=== PATIENT | male | born 1930 | race Caucasian/White ===

== ENCOUNTER 2016-08-18 11:14 | Inpatient (IN) | payer MEDICARE ==
[~2016-08-18] VITALS: Ht 180.3 cm; Wt 83.5 kg
--- NOTE | ~2016-08-18 | PR ---
[place], [place] PROGRESS NOTE NAME: ANGÉLICA SNOW SR [facility] #: [id number] UNIT #: [id number] ROOM: 528 DOCTOR: ALEXANDER NAVA MD BIRTHDATE: [birth year] DOS: SUBJECTIVE: The patient has been admitted to hospital with dementia, noncompliant with medication, failure to thrive, and the patient is waiting to be discharged to [facility]. OBJECTIVE: VITAL SIGNS: He is stable. Blood pressure is 146/56, pulse is 57, respirations 18, temperature 97.4. GENERAL: He is not in any distress. He is sitting comfortably. No nausea, no vomiting. CHEST: Clear. HEART: Irregular. ABDOMEN: Soft. LABORATORY DATA: His hemoglobin 7. ALEXANDER NAVA MD CM:PNTRANS [id number] ALEXANDER NAVA MD 08/22/16 0701 interface
[~2016-08-18 11:14] MED LIST: 'TENORMIN50 MG PO; ALAVERT10 M1 PO; ASPI-COR81 M1 PO; ATENOLOL50 M1 PO; CIPRO250 MG PO; CLARITIN10 MG PO; FLOMAX0.4 MG PO; LACTULOSE10 GM/15 M PO; LANTUS100 U/ML SC; LASIX40 MG PO; LEVAQUIN750 M1 PO; MACROBID100 M1 PO; MEDROL DOSEPAK4 MG PO; METAMUCIL PACK3.4 GM PO; METFORMIN1000 MG PO; MIRALAX POWDER17 G1 PO; PREDNISONE10 MG PO; PREDNISONE20 MG PO; PROTONIX40 MG PO; REQUIP0.5 MG PO; REQUIP2 M2 PO; ROBITUSSIN DM 101 OZ PO; SENNA DOCUSATE PO; TAMSULOSIN HCL0.4 MG JT; TAMSULOSIN HCL0.4 MG PO; VIBRAMYCIN100 MG PO; VITAMIN D32000 I1 PO; VITAMIN D32000 IU PO; VITAMIN D32000 UNIT PO; ZESTRIL,PRINIVI10 MG PO; ZOCOR40 MG PO
[2016-08-18 11:19] VITALS: BP 165/61
[2016-08-18] MEDS ORDERED: LASIX40 MG PO (11:23)
[2016-08-18] MEDS ORDERED: LISINOPRIL10 M1 PO (11:24)
[2016-08-18] MEDS ORDERED: ARICEPT10 M1 PO (11:24)
[2016-08-18 11:47] LABS: BASO % 0.3 % (0.0-1.0); HEMATOCRIT 39.3 % (42.0-52.0); HEMOGLOBIN 12.5 g/dl (14.0-18.0); LYMPH % 25.8 % (27.0-41.0); MEAN CELL VOLUME 96.3 fl (80.0-94.0); MEAN CORPUSCULAR HGB 30.6 pg (27.0-31.0); MEAN CORPUSCULAR HGB CONC 31.8 g/dl (33.0-37.0); MEAN PLATELET VOLUME 10.2 fl (9.6-12.3); MONO # 0.9 10*3/uL (0.1-1.0); MONO % 11.1 % (3.0-9.0); NEUT # 4.8 10*3/uL (2.3-7.9); NEUT % 62.5 % (47.0-73.0); PLATELET COUNT AUTOMATED 206 10*3/uL (130-400); RED BLOOD COUNT 4.08 10*6/uL (4.50-5.90); RED CELL DISTRI WIDTH 12.7 % (0-14.5); WHITE BLOOD COUNT 7.7 10*3/uL (4.8-10.8)
[2016-08-18 12:04] LABS: ALKALINE PHOSPHATASE 82 U/L (45-117); BILIRUBIN, TOTAL 0.3 mg/dl (0.2-1.0); BUN 42 mg/dl (7-24); CARBON DIOXIDE 28 mmol/L (21-32); CHLORIDE 107 mmol/L (98-107); EST GLOM FILT AFRICAN AMERICAN > 60 ml/min; GLUCOSE 93 mg/dL (65-99); POTASSIUM 4.2 mmol/L (3.5-5.1); SGOT/AST 17 IU/L (3-35); SGPT/ALT 33 U/L (12-78); SODIUM 143 mmol/L (136-145); TOTAL PROTEIN 8.3 gm/dL (6.4-8.2)
[2016-08-18 12:30] LABS: BILIRUBIN NEGATIVE (NEGATIVE); BLOOD NEGATIVE (NEGATIVE); CLARITY CLEAR (CLEAR); COLOR YELLOW (YELLOW); GLUCOSE NEGATIVE (NEGATIVE); KETONE NEGATIVE (NEGATIVE); LEUKO ESTERASE NEGATIVE (NEGATIVE); NITRITE NEGATIVE (NEGATIVE); PH 5.5 (5.0-9.0); PROTEIN TRACE (NEGATIVE); UROBILINOGEN 0.2 E.U./dl (0.2-1.0)
[2016-08-18 12:47] LABS: BACTERIA TRACE; URINE REFLEX COMMENT NO (NO)
[2016-08-18 12:58] VITALS: BP 145/48
[2016-08-18 14:00] VITALS: BP 170/99; BP 179/59
[2016-08-18] MEDS ORDERED: NAMENDA-5 PO (15:11)
[2016-08-18] MEDS ORDERED: PROAIR RESPICL90 MCG INH (15:11)
[2016-08-18] MEDS ORDERED: Econopred Plus 15 ML OPH (15:11)
[2016-08-18] MEDS ORDERED: SPIRIVA18 MCG PO (15:12)
[2016-08-18] MEDS ORDERED: ADVAIR DISKUS 21 DSK INH (15:12)
[2016-08-18] MEDS ORDERED: FLONASE SENSIM9.9 ML NS (15:12)
[2016-08-18 16:00] VITALS: BP 162/65
[2016-08-18 20:00] VITALS: BP 150/60
[2016-08-19] VITALS: BP 166/83
[2016-08-19 06:05] LABS: BASO % 0.3 % (0.0-1.0); HEMATOCRIT 38.1 % (42.0-52.0); HEMOGLOBIN 12.3 g/dl (14.0-18.0); LYMPH # 1.8 10*3/uL (1.3-4.4); LYMPH % 26.2 % (27.0-41.0); MEAN CELL VOLUME 95.7 fl (80.0-94.0); MEAN CORPUSCULAR HGB 30.9 pg (27.0-31.0); MEAN CORPUSCULAR HGB CONC 32.3 g/dl (33.0-37.0); MEAN PLATELET VOLUME 10.7 fl (9.6-12.3); MONO # 0.8 10*3/uL (0.1-1.0); MONO % 12.3 % (3.0-9.0); NEUT # 4.2 10*3/uL (2.3-7.9); NEUT % 61.1 % (47.0-73.0); PLATELET COUNT AUTOMATED 176 10*3/uL (130-400); RED BLOOD COUNT 3.98 10*6/uL (4.50-5.90); RED CELL DISTRI WIDTH 12.6 % (0-14.5); WHITE BLOOD COUNT 6.8 10*3/uL (4.8-10.8)
[2016-08-19 06:26] LABS: ALBUMIN 3.7 gm/dl (3.1-4.5); CARBON DIOXIDE 29 mmol/L (21-32); CHLORIDE 107 mmol/L (98-107); GLUCOSE 129 mg/dL (65-99); POTASSIUM 3.8 mmol/L (3.5-5.1); SGOT/AST 16 IU/L (3-35); SGPT/ALT 31 U/L (12-78); SODIUM 143 mmol/L (136-145)
[2016-08-19 06:32] LABS: PROTHROMBIN TIME 10.7 SECONDS (9.0-12.4)
[2016-08-19 06:34] LABS: ALKALINE PHOSPHATASE 86 U/L (45-117); BILIRUBIN, TOTAL 0.4 mg/dl (0.2-1.0); CHOLESTEROL 121 mg/dL (<200); EST GLOM FILT AFRICAN AMERICAN > 60 ml/min; FREE T4 1.06 ng/dl (0.76-1.46); HDL CHOLESTEROL 44 mg/dl (40-60); LDL CHOLESTEROL 58 mg/dL (9-159); PHOSPHOROUS 2.1 mg/dL (2.5-4.9); TOTAL PROTEIN 7.9 gm/dL (6.4-8.2); TRIGLYCERIDES 94 mg/dl (<150); VLDL CHOLESTEROL 19 mg/dL (6-40)
[2016-08-19 07:04] LABS: BUN 27 mg/dl (7-24)
[2016-08-19 08:00] VITALS: BP 160/68
[2016-08-19 09:22] LABS: VITAMIN D, 25-HYDROXY 45.5 ng/mL (30-100)
[2016-08-19 09:23] LABS: FOLIC ACID 10.04 ng/mL (>5.38)
[2016-08-19 12:00] VITALS: BP 167/56
[2016-08-19 16:00] VITALS: BP 143/57
[2016-08-19 20:00] VITALS: BP 145/61
[2016-08-20] VITALS: BP 160/56
[2016-08-20 08:00] VITALS: BP 154/66
[2016-08-20 12:00] VITALS: BP 156/98
[2016-08-20 16:00] VITALS: BP 140/50
[2016-08-20 20:00] VITALS: BP 152/54
[2016-08-21] VITALS: BP 148/53
[2016-08-21 08:00] VITALS: BP 146/56
[2016-08-21 12:00] VITALS: BP 131/66
[2016-08-21 16:00] VITALS: BP 148/49
== END 2016-08-21 18:40 | disposition other institution (70) | DRG 884 ==
LOC: ED 11:14 → EDHOLD 13:13 → 5E 13:13
PROVIDERS: Internal Medicine; Nurse Practitioner Family
DX: F03.90 Unspecified dementia, unspecified severity, without behavioral disturbance, psychotic disturbance, mood disturbance, and anxiety (principal); I11.0 Hypertensive heart disease with heart failure; I50.30 Unspecified diastolic (congestive) heart failure; J44.9 Chronic obstructive pulmonary disease, unspecified; R62.7 Adult failure to thrive; K21.9 Gastro-esophageal reflux disease without esophagitis; E78.5 Hyperlipidemia, unspecified; G25.81 Restless legs syndrome; Z90.49 Acquired absence of other specified parts of digestive tract; Z86.73 Personal history of transient ischemic attack (TIA), and cerebral infarction without residual deficits; Z82.3 Family history of stroke; Z80.1 Family history of malignant neoplasm of trachea, bronchus and lung; Z91.14 Patient's other noncompliance with medication regimen; Z79.82 Long term (current) use of aspirin; Z79.899 Other long term (current) drug therapy; Z79.4 Long term (current) use of insulin; E11.9 Type 2 diabetes mellitus without complications

== ENCOUNTER 2016-08-23 11:40 | Inpatient (IN) | payer MEDICARE ==
[~2016-08-23] VITALS: Ht 180.3 cm; Wt 85.9 kg
[2016-08-23] VITALS (10 sets, daily range): BP systolic 83–132; BP diastolic 27–91
--- NOTE | ~2016-08-23 | PR ---
[place], [place] PROGRESS NOTE NAME: ANGÉLICA SNOW SR [facility] #: [id number] UNIT #: [id number] ROOM: 407 DOCTOR: EMILIANA DAVIES MD BIRTHDATE: [birth year] DOS: 08/24/2016 SUBJECTIVE: The patient was seen at his bedside today, 08/24/2016, for followup of his syncopal episode that prompted the current admission. He is an 85-year-old man who has a history of dementia. He has had a previous stroke with some right-sided weakness. He also has diabetes, hypertension, and hyperlipidemia. He [facility] to [facility] his [facility] after he lost consciousness while undergoing physical therapy. HISTORY OF PRESENT ILLNESS: The patient was lying in bed at the time of the physical therapy and was therefore horizontal when he lost consciousness. Thus far, the only clue to his decreased level of consciousness is the fact that he was hypoglycemic when seen by emergency medical personnel. In the hospital, he was mildly bradycardic, but this resolved when we stopped his atenolol. He did not have orthostatic hypotension. He has not had any arrhythmias on the monitor. An echocardiogram is pending. PHYSICAL EXAMINATION: VITAL SIGNS: Today, his pulse is 68 and regular, blood pressure is 176/64, he is afebrile. He weighs 85.9 kilograms with a body mass index of 26.4. HEENT: Normocephalic, atraumatic. NECK: Supple. He has no jugular distention. LUNGS: Respirations are unlabored and his chest is clear. HEART: Regular rhythm with a fourth heart sound, but no third heart sound or significant murmur. ABDOMEN: Soft. EXTREMITIES: Showed trace edema bilaterally. LABORATORY DATA: Review of his monitor strip shows sinus bradycardia which has improved since admission. He is now in sinus rhythm. He has not had any prolonged pauses or significant ventricular arrhythmias. IMPRESSION: 1. Syncope, etiology not yet determined. However, the only positive finding thus far is the fact that he was hypoglycemic when emergency medical services personnel arrived. Glucose at that time was 50. 2. Dementia. 3. Type 2 diabetes mellitus. 4. Bradycardia, which has resolved with withholding atenolol. 5. History of hypertension. 6. History of hyperlipidemia. 7. Slight swelling and tenderness in the legs with elevated D-dimer. A lower extremity venous ultrasound, however, showed no signs of deep venous thrombosis. PLAN: We will review his echocardiogram when it is available. For now, I would continue Lovenox at therapeutic doses since his D-dimer was mildly elevated. I would not recommend a CT angiogram of the chest since he did have an acute renal injury apparent when he entered the hospital. 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 He will probably need readjustment of his antihypertensives since atenolol was stopped. [place], [place] PROGRESS NOTE NAME: GWENDOLYN CALVILLOANGÉLICA L [id number] UNIT #: [id number] ROOM: 407 DOCTOR: EMILIANA DAVIES MD BIRTHDATE: [birth year] I thank the hospitalist group for asking our advice regarding his care. EMILIANA DAVIES MD CM:PNTRANS [phone] EMILIANA DAVIES MD 08/25/16 0457 interface
--- NOTE | ~2016-08-23 | CON ---
[place], [place] REPORT OF CONSULTATION NAME: ANGÉLICA MONTES SR [facility] #: [id number] UNIT #: [id number] ROOM: 407 DOCTOR: EMILIANA DAVIES MD BIRTHDATE: [birth year] DOS: 08/23/2016 REASON FOR CONSULTATION: Loss of consciousness. HISTORY OF PRESENT ILLNESS: Angélica Montes Sr. is an 85-year-old man who has a history of vascular disease including previous stroke with residual right-sided weakness. He also has a history of diabetes, hypertension, hyperlipidemia, and dementia. I evaluated him in 02/2015 when he presented after losing consciousness in a chair. His family felt that he may have taken an extra dose of Requip prior to that admission. His evaluation was otherwise essentially benign. He is currently a [facility] resident where he receives physical therapy. He states that he was lying on a therapy table and they were doing range of motion activities with his leg. Witnesses say that he became diaphoretic and then lost consciousness while supine. The patient denied chest pain, palpitations, or dyspnea, but stated that he felt lightheaded and diaphoretic around the time of his episode. He did have diarrhea earlier in the day. The patient is, however, an unreliable historian and states that he believes he lost consciousness for "2 hours." Currently, he feels back to normal. He was sitting eating a sandwich when I walked into the room to interview him. The chart indicates that his systolic pressure was 60 per minute upon arrival of emergency medical services. His sugar was also low at about 50. Currently, the patient feels back to normal. PAST MEDICAL HISTORY: Includes: 1. COPD. 2. Dementia. 3. Type 2 diabetes mellitus. 4. Gastroesophageal reflux disease. 5. History of stroke. 6. Hyperlipidemia. 7. Hypertension. 8. Restless leg syndrome. 9. History of appendectomy. FAMILY HISTORY: The patient's father at age 85 from a stroke. His mother of lung cancer at age 57. MEDICATIONS: Include Breo Ellipta 1 inhalation daily, Incruse Ellipta 1 inhalation daily, albuterol 2 puffs q. 6 hours p.r.n., fluticasone 1 spray in the nares daily, prednisolone eyedrops in the left eye daily, aspirin 81 mg daily, atenolol 50 mg daily, cholecalciferol 2000 units daily, donepezil 10 mg at bedtime, furosemide 40 mg daily, guaifenesin q. 4 hours p.r.n. cough, lisinopril 10 mg daily, memantine 5 mg b.i.d., pantoprazole 40 mg daily, ropinirole 1 mg daily, Senokot 15 mg at bedtime p.r.n., simvastatin 40 mg at bedtime, tamsulosin 0.4 mg daily, bisacodyl 10 mg per rectum daily p.r.n., Lantus insulin 20 units subcutaneously b.i.d., and ammonium lactate cream to his [place], [place] REPORT OF CONSULTATION NAME: ANGÉLICA MONTES SR UNIT #: [id number] ROOM: [facility] DOCTOR: EMILIANA DAVIES MD BIRTHDATE: [birth year] feet b.i.d. ALLERGIES: The chart indicates that he has no known drug allergies. SOCIAL HISTORY: The patient does use chewing tobacco, but does not consume alcohol or illicit drugs. He is a former smoker. REVIEW OF SYSTEMS: The patient denies diplopia or loss of vision. He does have some right-sided weakness. He denies current nausea or vomiting. He denies fevers, chills, sweats, or recent weight change. He has a good appetite. He denies bleeding from his bowels or bladder. He did have diarrhea earlier today. He denies any peripheral edema. He denies any new skin rashes. The remainder of the review of systems is negative except as noted above. PHYSICAL EXAMINATION: GENERAL: The patient is an elderly white male who is awake, alert, and oriented. VITAL SIGNS: He has been bradycardic since admission with heart rates as low as 48 recorded. No pauses have been seen on the monitor. Blood pressure is 110/62. Orthostatic blood pressures show a supine blood pressure of 111/62, sitting blood pressure of 100/56, and standing blood pressure of 130/60. He weighs 85.9 kg and has a body mass index of 26.4. HEENT: Normocephalic and atraumatic. Extraocular muscles are intact. Sclerae are clear. Pupils are round and react to light. The oral mucosa is moist. Tongue is midline. NECK: Supple. He has no jugular distention or hepatojugular reflux. Carotids are full. I heard no bruits. He had no neck or supraclavicular masses. LUNGS: Respirations were unlabored. He did have decreased breath sounds at the bases, but no wheezes or rales. He had no presacral edema or chest wall tenderness. CARDIOVASCULAR: His heart had a regular rhythm. He had a fourth heart sound, but no third heart sound or significant murmur. The PMI was not displaced. He had no precordial heave, lift, or thrill. ABDOMEN: Soft and normoactive without masses, organomegaly, or bruits. EXTREMITIES: His right calf was somewhat tender and there was some slight swelling of his right ankle. The left leg appeared normal. Peripheral pulses were diminished bilaterally. LABORATORY DATA: Chest x-ray showed a right lung granuloma, but no evidence for infiltrates or heart failure. A head CT scan showed atrophy with chronic ischemic changes. Scattered small old infarctions were unchanged and there was no acute infarction. I reviewed his electrocardiogram. It did show sinus bradycardia, but no acute ST changes. Hemoglobin is 11.4, hematocrit 36, white count 8700, platelet count 195,000. INR 1.0. Sodium 142, potassium 4.2, BUN 36, creatinine 1.37, magnesium 1.9. Total CK and troponin were both normal. TSH was normal at 1.75. IMPRESSIONS: 1. Altered mental status. The patient states that he lost consciousness while [place], [place] REPORT OF CONSULTATION NAME: ANGÉLICA MONTES SR UNIT #: [id number] ROOM: 407 DOCTOR: EMILIANA DAVIES MD BIRTHDATE: [birth year] he was receiving physical therapy to his legs. He reports that he was supine at that time. 2. Dementia. 3. Type 2 diabetes mellitus. The patient was hypoglycemic when first evaluated by Emergency Medical Services. 4. Bradycardia. The patient has normal TSH, but he is on a beta-megan. 5. Hypertension. 6. Hyperlipidemia. PLAN: It is distinctly unusual for a person to have syncope while supine. Differential diagnosis would include hypoglycemia, severe bradycardia, severe tachycardia, pulmonary emboli, etc. I am concerned that he does have a history of a right-sided stroke and his right calf is sore. For now, I would increase his Lovenox to therapeutic doses and have the patient undergo lower extremity venous ultrasonography of his right leg. If DVT are found, then I would evaluate him further for the possibility of a pulmonary embolism. We will also continue him on a monitor technician and I will stop his atenolol for the current time. We will check an echocardiogram for left ventricular function, right ventricular function, etc. Further recommendations will depend upon the results of his initial observations. I thank the hospitalist physicians for asking our advice regarding his management. EMILIANA DAVIES MD CM:CONSTR:REPORT OF CONSULTATION 1826 08/24/16 0817 interface
--- NOTE | ~2016-08-23 | EKG ---
[place], [place] ELECTROCARDIOGRAM REPORT [id number] UN[facility] #: [id number] ROOM: 407 DOCTOR: EMILIANA DAVIES MD BIRTHDATE: [birth year] DOS: 08/23/2016 TIME: 11:56 a.m. FINDINGS: 1. Marked sinus bradycardia with a rate of 48. 2. Left anterior fascicular block. 3. Possible left ventricular hypertrophy. 4. Poor precordial R wave progression. 5. Abnormal electrocardiogram. EMILIANA DAVIES MD CM:EKGRPT:ELECTROCARDIOGRAM REPORT 02 10 EMILIANA DAVIES MD
--- NOTE | ~2016-08-23 | PR ---
[place], [place] PROGRESS NOTE NAME: ANGÉLICA SNOW SR [facility] #: [id number] UNIT #: [id number] ROOM: 407 DOCTOR: EMILIANA DAVIES MD BIRTHDATE: [birth year] DOS: 08/25/2016 CARDIOLOGY PROGRESS NOTE SUBJECTIVE: The patient was seen at his bedside today August 25, 2016, for cardiac followup. He is an 85-year-old man who was hospitalized for a syncopal episode, which occurred while he was undergoing physical therapy and was supine. The therapists were working on his legs at that time. He was noted to be somewhat bradycardic upon admission, but he was also noted to be significantly hypoglycemic. Atenolol was stopped upon admission and he has not had any further severe bradycardia. His heart rate now is in the high 50s to low 60s and he has no prolonged pauses or ventricular arrhythmias on the monitor. His diabetic medications have been adjusted as well. OBJECTIVE: GENERAL: On exam, he is an elderly white male who is lying almost flat in bed. He is awake and alert. He denies any symptoms and appears comfortable. VITAL SIGNS: Pulse is 62 and regular, blood pressure is 156/52. He is afebrile. He weighs 85.9 kilograms and his body mass index of 26.4. HEENT: Normocephalic and atraumatic. Extraocular muscles are intact. Sclerae are clear. Pupils are equal, round and react to light. The oral mucosa is moist. Tongue is midline. NECK: Supple. He has no jugular distention. Carotids are full. I heard no bruits. He had no neck or supraclavicular masses. LUNGS: Respirations are unlabored and his chest is clear to auscultation and percussion. He has no presacral edema. HEART: Has a regular rhythm with a fourth heart sound, but no third heart sound or significant murmur. ABDOMEN: Soft. EXTREMITIES: Showed no edema. I reviewed his monitor strips and he does not have any significant tachycardia or bradycardia, pauses or ventricular arrhythmias. IMPRESSIONS: 1. Syncope while supine. It would be very unlikely that a hemodynamic or cardiovascular event would cause this unless he had a very prolonged sinus pause or V-tach. He has shown no signs of any of those. An echocardiogram this admission shows normal left ventricular size, wall thickness, regional wall motion and systolic function, making ventricular arrhythmias very unlikely. Most likely cause is hypoglycemia at this point. 2. Dementia. 3. Type 2 diabetes mellitus. 4. History of hypertension. 5. History of hyperlipidemia. PLAN: I would continue to withhold his atenolol and I will increase his GENE inhibitor to try to better control his blood pressure. No other cardiac workup is planned at this time. I thank Dr. Donohue for asking our advice regarding the management of this [place], [place] PROGRESS NOTE NAME: ANGÉLICA SNOW SR UNIT #: [id number] ROOM: 407 DOCTOR: EMILIANA DAVIES MD BIRTHDATE: [birth year] patient. EMILIANA DAVIES MD CM:PNTRANS [phone] EMILIANA DAVIES MD 08/25/16 2100 interface
--- NOTE | ~2016-08-23 | EKG ---
[place], [place] ELECTROCARDIOGRAM REPORT [facility]: [facility] SR [id number] #: [id number] ROOM: 407 DOCTOR: EMILIANA DAVIES MD BIRTHDATE: [birth year] DOS: 08/24/2016 TIME: 08:03 a.m. FINDINGS: 1. Marked baseline artifact makes interpretation difficult. 2. Sinus rhythm with a rate of 56. 3. Poor precordial R wave progression. 4. Nonspecific intraventricular conduction defect. 5. Possible left ventricular hypertrophy. 6. Abnormal electrocardiogram. EMILIANA DAVIES MD CM:EKGRPT:ELECTROCARDIOGRAM REPORT [id number] EMILIANA DAVIES MD
[~2016-08-23 11:40] MED LIST changes: +ADVAIR DISKUS 21 DSK INH; +ARICEPT10 M1 PO; +Econopred Plus 15 ML OPH; +FLONASE SENSIM9.9 ML NS; +LISINOPRIL10 M1 PO; +NAMENDA-5 PO; +PROAIR RESPICL90 MCG INH; +SPIRIVA18 MCG PO
[2016-08-23] MEDS ORDERED: ASPIRIN81 M1 PO (11:53)
[2016-08-23] MEDS ORDERED: AMLACTIN 12% TP (11:53)
[2016-08-23] MEDS ORDERED: ARICEPT10 M1 PO (11:53)
[2016-08-23] MEDS ORDERED: BREO ELLIPTA 21 EACH IH (11:54)
[2016-08-23] MEDS ORDERED: DULCOLAX10 M1 RC (11:54)
[2016-08-23] MEDS ORDERED: 'TENORMIN50 MG PO (11:54)
[2016-08-23] MEDS ORDERED: FLOMAX0.4 MG PO (11:55)
[2016-08-23] MEDS ORDERED: INCRUSE EL62.5 MCG/A IH (11:55)
[2016-08-23] MEDS ORDERED: FLONASE ALLERG9.9 ML NAS (11:55)
[2016-08-23] MEDS ORDERED: LANTUS100 U/ML SC (11:56)
[2016-08-23] MEDS ORDERED: LISINOPRIL10 M1 PO (11:56)
[2016-08-23] MEDS ORDERED: LASIX40 MG PO (11:56)
[2016-08-23] MEDS ORDERED: NAMENDA5 M1 PO (11:56)
[2016-08-23] MEDS ORDERED: PROAIR RESPICL90 MCG INH (11:57)
[2016-08-23] MEDS ORDERED: Econopred Plus 15 ML OPH (11:57)
[2016-08-23] MEDS ORDERED: PROTONIX40 MG PO (11:57)
[2016-08-23] MEDS ORDERED: REQUIP0.5 MG PO (11:58)
[2016-08-23] MEDS ORDERED: ROBITUSSIN PEA118 ML PO (11:58)
[2016-08-23] MEDS ORDERED: ZOCOR40 MG PO (11:59)
[2016-08-23] MEDS ORDERED: VITAMIN D32000 UNI1 PO (11:59)
[2016-08-23] MEDS ORDERED: EX-LAX15 MG PO (11:59)
[2016-08-23 12:04] LABS: BASO % 0.2 % (0.0-1.0); HEMOGLOBIN 11.4 g/dl (14.0-18.0); LYMPH # 2.4 10*3/uL (1.3-4.4); LYMPH % 27.7 % (27.0-41.0); MEAN CELL VOLUME 97.8 fl (80.0-94.0); MEAN CORPUSCULAR HGB CONC 31.7 g/dl (33.0-37.0); MEAN PLATELET VOLUME 10.4 fl (9.6-12.3); MONO # 0.9 10*3/uL (0.1-1.0); MONO % 10.7 % (3.0-9.0); NEUT # 5.3 10*3/uL (2.3-7.9); NEUT % 60.9 % (47.0-73.0); PLATELET COUNT AUTOMATED 195 10*3/uL (130-400); RED BLOOD COUNT 3.68 10*6/uL (4.50-5.90); RED CELL DISTRI WIDTH 12.5 % (0-14.5); WHITE BLOOD COUNT 8.7 10*3/uL (4.8-10.8)
[2016-08-23 12:12] LABS: PROTHROMBIN TIME 10.6 SECONDS (9.0-12.4)
[2016-08-23 12:25] LABS: ALBUMIN 3.4 gm/dl (3.1-4.5); BUN 36 mg/dl (7-24); CARBON DIOXIDE 30 mmol/L (21-32); CHLORIDE 107 mmol/L (98-107); CKMB 0.7 ng/ml (0.5-3.6); EST GLOM FILT AFRICAN AMERICAN > 60 ml/min; GLUCOSE 56 mg/dL (65-99); MAGNESIUM 1.9 mg/dL (1.5-2.1); POTASSIUM 4.2 mmol/L (3.5-5.1); SGOT/AST 16 IU/L (3-35); SGPT/ALT 28 U/L (12-78); SODIUM 142 mmol/L (136-145)
[2016-08-23 12:27] LABS: ALKALINE PHOSPHATASE 71 U/L (45-117); BILIRUBIN, TOTAL 0.2 mg/dl (0.2-1.0); CPK 64 U/L (39-308); TOTAL PROTEIN 7.2 gm/dL (6.4-8.2)
[2016-08-23 12:28] LABS: C-REACTIVE PROTEIN < 0.29 MG/DL (0-0.3); TROPONIN I < 0.015 ng/ml (<0.045)
[2016-08-23 13:27] LABS: BILIRUBIN NEGATIVE (NEGATIVE); BLOOD NEGATIVE (NEGATIVE); CLARITY CLEAR (CLEAR); COLOR YELLOW (YELLOW); GLUCOSE NEGATIVE (NEGATIVE); KETONE NEGATIVE (NEGATIVE); LEUKO ESTERASE NEGATIVE (NEGATIVE); NITRITE NEGATIVE (NEGATIVE); PROTEIN NEGATIVE (NEGATIVE); UROBILINOGEN 0.2 E.U./dl (0.2-1.0)
[2016-08-23 13:37] LABS: BACTERIA TRACE; EPITHELIAL CELLS 0-2; RBC 0-2 rbc/hpf (0-2); URINE REFLEX COMMENT NO (NO); WBC 0-2 wbc/hpf (0-5)
[2016-08-23 18:08] LABS: CKMB 0.7 ng/ml (0.5-3.6); CPK 57 U/L (39-308); TROPONIN I < 0.015 ng/ml (<0.045)
[2016-08-24] VITALS: BP 125/66
[2016-08-24 00:49] LABS: CPK 50 U/L (39-308)
[2016-08-24 00:51] LABS: CKMB < 0.5 ng/ml (0.5-3.6); TROPONIN I < 0.015 ng/ml (<0.045)
[2016-08-24 06:14] LABS: BASO % 0.1 % (0.0-1.0); HEMATOCRIT 35.2 % (42.0-52.0); HEMOGLOBIN 11.3 g/dl (14.0-18.0); LYMPH # 1.7 10*3/uL (1.3-4.4); LYMPH % 23.4 % (27.0-41.0); MEAN CELL VOLUME 97.2 fl (80.0-94.0); MEAN CORPUSCULAR HGB 31.2 pg (27.0-31.0); MEAN CORPUSCULAR HGB CONC 32.1 g/dl (33.0-37.0); MONO # 0.9 10*3/uL (0.1-1.0); MONO % 11.7 % (3.0-9.0); NEUT # 4.8 10*3/uL (2.3-7.9); NEUT % 64.4 % (47.0-73.0); PLATELET COUNT AUTOMATED 151 10*3/uL (130-400); RED BLOOD COUNT 3.62 10*6/uL (4.50-5.90); RED CELL DISTRI WIDTH 12.5 % (0-14.5); WHITE BLOOD COUNT 7.4 10*3/uL (4.8-10.8)
[2016-08-24 06:27] LABS: CKMB 1.1 ng/ml (0.5-3.6); CPK 50 U/L (39-308); TROPONIN I < 0.015 ng/ml (<0.045)
[2016-08-24 06:49] LABS: ALBUMIN 3.1 gm/dl (3.1-4.5); BUN 29 mg/dl (7-24); CARBON DIOXIDE 32 mmol/L (21-32); CHLORIDE 107 mmol/L (98-107); EST GLOM FILT AFRICAN AMERICAN > 60 ml/min; GLUCOSE 84 mg/dL (65-99); MAGNESIUM 1.8 mg/dL (1.5-2.1); POTASSIUM 4.1 mmol/L (3.5-5.1); SGOT/AST 23 IU/L (3-35); SGPT/ALT 25 U/L (12-78); SODIUM 142 mmol/L (136-145)
[2016-08-24 06:51] LABS: ALKALINE PHOSPHATASE 73 U/L (45-117); BILIRUBIN, TOTAL 0.4 mg/dl (0.2-1.0); TOTAL PROTEIN 6.9 gm/dL (6.4-8.2)
[2016-08-24 08:00] VITALS: BP 153/58
[2016-08-24 12:00] VITALS: BP 151/57
[2016-08-24 16:00] VITALS: BP 176/64
[2016-08-24 20:00] VITALS: BP 147/51
[2016-08-25] VITALS: BP 160/70
[2016-08-25 08:00] VITALS: BP 156/52
[2016-08-25 16:00] VITALS: BP 150/67
[2016-08-25 20:00] VITALS: BP 143/47
[2016-08-26] VITALS: BP 147/57
[2016-08-26 06:56] LABS: ALBUMIN 2.9 gm/dl (3.1-4.5); CARBON DIOXIDE 29 mmol/L (21-32); CHLORIDE 104 mmol/L (98-107); EST GLOM FILT AFRICAN AMERICAN > 60 ml/min; GLUCOSE 134 mg/dL (65-99); PHOSPHOROUS 1.9 mg/dL (2.5-4.9); POTASSIUM 3.9 mmol/L (3.5-5.1); SODIUM 142 mmol/L (136-145)
[2016-08-26 07:02] LABS: BUN 14 mg/dl (7-24)
[2016-08-26 08:00] VITALS: BP 143/49
[2016-08-26] MEDS ORDERED: LEVEMIR10 ML SC ×2 (10:04)
== END 2016-08-26 14:09 | disposition other institution (70) | DRG 314 ==
LOC: ED 11:40 → EDHOLD 13:35 → 4E 13:35
PROVIDERS: Emergency Medicine; Hospitalist; Internal Medicine
DX: I95.9 Hypotension, unspecified (principal); G93.40 Encephalopathy, unspecified; N17.0 Acute kidney failure with tubular necrosis; J96.01 Acute respiratory failure with hypoxia; I50.32 Chronic diastolic (congestive) heart failure; I11.0 Hypertensive heart disease with heart failure; F03.90 Unspecified dementia, unspecified severity, without behavioral disturbance, psychotic disturbance, mood disturbance, and anxiety; D53.9 Nutritional anemia, unspecified; J44.9 Chronic obstructive pulmonary disease, unspecified; K21.9 Gastro-esophageal reflux disease without esophagitis; G25.81 Restless legs syndrome; E78.5 Hyperlipidemia, unspecified; E11.649 Type 2 diabetes mellitus with hypoglycemia without coma; Z86.73 Personal history of transient ischemic attack (TIA), and cerebral infarction without residual deficits; Z98.49 Cataract extraction status, unspecified eye; Z87.891 Personal history of nicotine dependence; Z82.3 Family history of stroke; Z80.1 Family history of malignant neoplasm of trachea, bronchus and lung; Z79.82 Long term (current) use of aspirin; Z79.4 Long term (current) use of insulin; Z79.899 Other long term (current) drug therapy

== ENCOUNTER 2016-11-24 07:33 | Inpatient (IN) | payer MEDICARE ==
[2016-11-24] VITALS (7 sets, daily range): BP systolic 99–190; BP diastolic 47–76
[~2016-11-24] VITALS: Ht 180.3 cm; Wt 90.0 kg
[~2016-11-24 07:33] MED LIST changes: +AMLACTIN 12% TP; +ASPIRIN81 M1 PO; +BREO ELLIPTA 21 EACH IH; +DULCOLAX10 M1 RC; +EX-LAX15 MG PO; +FLONASE ALLERG9.9 ML NAS; +INCRUSE EL62.5 MCG/A IH; +LEVEMIR10 ML SC; +NAMENDA5 M1 PO; +ROBITUSSIN PEA118 ML PO; +VITAMIN D32000 UNI1 PO
[2016-11-24] MEDS ORDERED: LIPITOR20 MG PO (07:47)
[2016-11-24] MEDS ORDERED: FLONASE ALLERG9.9 ML NAS (07:49)
[2016-11-24] MEDS ORDERED: LEVEMIR10 ML SC (07:52)
[2016-11-24 08:12] LABS: BASO % 0.3 % (0.0-1.0); HEMATOCRIT 32.6 % (42.0-52.0); HEMOGLOBIN 10.8 g/dl (14.0-18.0); IG # 0.1 10*3/uL (0.0-0.1); LYMPH # 1.6 10*3/uL (1.3-4.4); MEAN CELL VOLUME 92.1 fl (80.0-94.0); MEAN CORPUSCULAR HGB 30.5 pg (27.0-31.0); MEAN CORPUSCULAR HGB CONC 33.1 g/dl (33.0-37.0); MONO # 0.7 10*3/uL (0.1-1.0); MONO % 10.3 % (3.0-9.0); NEUT # 4.3 10*3/uL (2.3-7.9); NEUT % 64.7 % (47.0-73.0); PLATELET COUNT AUTOMATED 206 10*3/uL (130-400); RED BLOOD COUNT 3.54 10*6/uL (4.50-5.90); RED CELL DISTRI WIDTH 13.2 % (0-14.5); WHITE BLOOD COUNT 6.7 10*3/uL (4.8-10.8)
[2016-11-24 08:17] LABS: BILIRUBIN NEGATIVE (NEGATIVE); BLOOD TRACE-LYSED (NEGATIVE); CLARITY CLEAR (CLEAR); COLOR YELLOW (YELLOW); GLUCOSE TRACE (NEGATIVE); KETONE NEGATIVE (NEGATIVE); LEUKO ESTERASE NEGATIVE (NEGATIVE); NITRITE NEGATIVE (NEGATIVE); PROTEIN NEGATIVE (NEGATIVE)
[2016-11-24 08:21] LABS: PROTHROMBIN TIME 10.2 SECONDS (9.0-12.4)
[2016-11-24 08:26] LABS: URINE REFLEX COMMENT NO (NO)
[2016-11-24 08:27] LABS: WBC 0-2 wbc/hpf (0-5)
[2016-11-24 08:31] LABS: ALBUMIN 3.2 gm/dl (3.1-4.5); ALKALINE PHOSPHATASE 83 U/L (45-117); BILIRUBIN, TOTAL 0.3 mg/dl (0.2-1.0); BUN 41 mg/dl (7-24); CARBON DIOXIDE 30 mmol/L (21-32); CHLORIDE 101 mmol/L (98-107); EST GLOM FILT AFRICAN AMERICAN 54 ml/min; GLUCOSE 185 mg/dL (65-99); POTASSIUM 4.5 mmol/L (3.5-5.1); SGOT/AST 13 IU/L (3-35); SGPT/ALT 19 U/L (12-78); SODIUM 138 mmol/L (136-145); TOTAL PROTEIN 6.9 gm/dL (6.4-8.2)
[2016-11-24 08:39] LABS: TROPONIN I < 0.015 ng/ml (<0.045)
[2016-11-25] VITALS (9 sets, daily range): BP systolic 104–157; BP diastolic 42–80
[2016-11-25 06:33] LABS: BASO % 0.1 % (0.0-1.0); HEMATOCRIT 29.8 % (42.0-52.0); HEMOGLOBIN 9.6 g/dl (14.0-18.0); IG # 0.1 10*3/uL (0.0-0.1); LYMPH # 1.6 10*3/uL (1.3-4.4); LYMPH % 17.9 % (27.0-41.0); MEAN CORPUSCULAR HGB CONC 32.2 g/dl (33.0-37.0); MEAN PLATELET VOLUME 9.6 fl (9.6-12.3); MONO # 1.3 10*3/uL (0.1-1.0); MONO % 14.6 % (3.0-9.0); NEUT # 5.9 10*3/uL (2.3-7.9); NEUT % 66.8 % (47.0-73.0); PLATELET COUNT AUTOMATED 194 10*3/uL (130-400); RED CELL DISTRI WIDTH 13.8 % (0-14.5); WHITE BLOOD COUNT 8.8 10*3/uL (4.8-10.8)
[2016-11-25 06:35] LABS: MEAN CELL VOLUME 96.1 fl (80.0-94.0)
[2016-11-25 06:53] LABS: HEMOGLOBIN A1c 8.5 % (4.8-5.6)
[2016-11-25 07:04] LABS: FREE T4 1.18 ng/dl (0.76-1.46); MAGNESIUM 2.2 mg/dL (1.5-2.1); PHOSPHOROUS 2.8 mg/dL (2.5-4.9); POTASSIUM 4.8 mmol/L (3.5-5.1)
[2016-11-25 07:22] LABS: VITAMIN D, 25-HYDROXY 39.7 ng/mL (30-100)
[2016-11-25 07:23] LABS: FOLIC ACID 9.38 ng/mL (>5.38)
[2016-11-26] VITALS: BP 101/50
[2016-11-26 06:58] LABS: BASO % 0.1 % (0.0-1.0); LYMPH # 1.3 10*3/uL (1.3-4.4); LYMPH % 18.3 % (27.0-41.0); MEAN CORPUSCULAR HGB 30.6 pg (27.0-31.0); MEAN CORPUSCULAR HGB CONC 31.3 g/dl (33.0-37.0); MEAN PLATELET VOLUME 9.3 fl (9.6-12.3); MONO # 1.1 10*3/uL (0.1-1.0); MONO % 14.9 % (3.0-9.0); NEUT # 4.7 10*3/uL (2.3-7.9); NEUT % 66.3 % (47.0-73.0); PLATELET COUNT AUTOMATED 148 10*3/uL (130-400); RED BLOOD COUNT 2.45 10*6/uL (4.50-5.90); RED CELL DISTRI WIDTH 13.8 % (0-14.5); WHITE BLOOD COUNT 7.1 10*3/uL (4.8-10.8)
[2016-11-26 07:00] LABS: HEMOGLOBIN 7.5 g/dl (14.0-18.0)
[2016-11-26 08:00] VITALS: BP 111/88
[2016-11-26 08:44] LABS: POTASSIUM 4.5 mmol/L (3.5-5.1)
[2016-11-26 12:00] VITALS: BP 102/32
[2016-11-26 16:00] VITALS: BP 96/50
[2016-11-26 20:00] VITALS: BP 110/48
[2016-11-27] VITALS: BP 109/50
[2016-11-27 07:25] LABS: HEMATOCRIT 22.3 % (42.0-52.0); HEMOGLOBIN 7.1 g/dl (14.0-18.0)
[2016-11-27 08:00] VITALS: BP 138/50
[2016-11-27 08:30] LABS: CARBON DIOXIDE 25 mmol/L (21-32); CHLORIDE 110 mmol/L (98-107); EST GLOM FILT AFRICAN AMERICAN > 60 ml/min; GLUCOSE 149 mg/dL (65-99); POTASSIUM 5.1 mmol/L (3.5-5.1); SODIUM 142 mmol/L (136-145)
[2016-11-27 08:32] LABS: BUN 27 mg/dl (7-24)
[2016-11-27 12:00] VITALS: BP 130/58
[2016-11-27 16:00] VITALS: BP 108/80
[2016-11-27 18:13] LABS: HEMATOCRIT 22.1 % (42.0-52.0); HEMOGLOBIN 7.1 g/dl (14.0-18.0)
[2016-11-27 20:00] VITALS: BP 141/50
[2016-11-28] VITALS: BP 140/55
[2016-11-28 07:13] LABS: HEMATOCRIT 22.4 % (42.0-52.0); HEMOGLOBIN 7.1 g/dl (14.0-18.0)
[2016-11-28 07:33] LABS: BUN 19 mg/dl (7-24); CARBON DIOXIDE 24 mmol/L (21-32); CHLORIDE 109 mmol/L (98-107); EST GLOM FILT AFRICAN AMERICAN > 60 ml/min; GLUCOSE 106 mg/dL (65-99); POTASSIUM 4.6 mmol/L (3.5-5.1); SODIUM 141 mmol/L (136-145)
[2016-11-28 08:00] VITALS: BP 142/40
[2016-11-28 12:00] VITALS: BP 156/76
[2016-11-28 16:00] VITALS: BP 146/86
[2016-11-28 20:00] VITALS: BP 151/50
[2016-11-29] VITALS: BP 150/52
[2016-11-29 06:59] LABS: BASO % 0.1 % (0.0-1.0); HEMATOCRIT 23.9 % (42.0-52.0); HEMOGLOBIN 7.8 g/dl (14.0-18.0); IG # 0.1 10*3/uL (0.0-0.1); LYMPH # 1.2 10*3/uL (1.3-4.4); LYMPH % 17.3 % (27.0-41.0); MEAN CELL VOLUME 97.6 fl (80.0-94.0); MEAN CORPUSCULAR HGB 31.8 pg (27.0-31.0); MEAN CORPUSCULAR HGB CONC 32.6 g/dl (33.0-37.0); MEAN PLATELET VOLUME 9.8 fl (9.6-12.3); MONO # 0.9 10*3/uL (0.1-1.0); MONO % 12.4 % (3.0-9.0); NEUT % 69.5 % (47.0-73.0); PLATELET COUNT AUTOMATED 200 10*3/uL (130-400); RED BLOOD COUNT 2.45 10*6/uL (4.50-5.90); WHITE BLOOD COUNT 7.2 10*3/uL (4.8-10.8)
[2016-11-29 07:27] LABS: BUN 15 mg/dl (7-24); CARBON DIOXIDE 26 mmol/L (21-32); CHLORIDE 108 mmol/L (98-107); EST GLOM FILT AFRICAN AMERICAN > 60 ml/min; GLUCOSE 163 mg/dL (65-99); SODIUM 140 mmol/L (136-145)
[2016-11-29 08:00] VITALS: BP 120/90
[2016-11-29 11:43] VITALS: BP 139/51
[2016-11-29 16:00] VITALS: BP 142/78
[2016-11-29 20:00] VITALS: BP 107/58
[2016-11-30] VITALS: BP 159/58
[2016-11-30 06:39] LABS: BASO % 0.2 % (0.0-1.0); HEMATOCRIT 21.9 % (42.0-52.0); IG # 0.1 10*3/uL (0.0-0.1); LYMPH # 1.2 10*3/uL (1.3-4.4); LYMPH % 20.3 % (27.0-41.0); MEAN CELL VOLUME 96.5 fl (80.0-94.0); MEAN CORPUSCULAR HGB 30.8 pg (27.0-31.0); MEAN PLATELET VOLUME 9.4 fl (9.6-12.3); MONO # 0.8 10*3/uL (0.1-1.0); MONO % 13.8 % (3.0-9.0); NEUT # 3.9 10*3/uL (2.3-7.9); NEUT % 64.6 % (47.0-73.0); PLATELET COUNT AUTOMATED 176 10*3/uL (130-400); RED BLOOD COUNT 2.27 10*6/uL (4.50-5.90); RED CELL DISTRI WIDTH 14.2 % (0-14.5); WHITE BLOOD COUNT 6.1 10*3/uL (4.8-10.8)
[2016-11-30 08:00] VITALS: BP 148/64
[2016-11-30 12:00] VITALS: BP 150/55
[2016-11-30 16:00] VITALS: BP 147/55
[2016-11-30 20:00] VITALS: BP 147/55; BP 149/51
[2016-12-01] VITALS: BP 141/51
[2016-12-01 06:26] LABS: ALBUMIN 2.4 gm/dl (3.1-4.5); ALKALINE PHOSPHATASE 68 U/L (45-117); BILIRUBIN, TOTAL 0.8 mg/dl (0.2-1.0); BUN 13 mg/dl (7-24); CARBON DIOXIDE 30 mmol/L (21-32); CHLORIDE 101 mmol/L (98-107); EST GLOM FILT AFRICAN AMERICAN > 60 ml/min; GLUCOSE 149 mg/dL (65-99); IRON 40 ug/dL (65-175); POTASSIUM 4.9 mmol/L (3.5-5.1); SGOT/AST 22 IU/L (3-35); SGPT/ALT 21 U/L (12-78); SODIUM 139 mmol/L (136-145); TOTAL PROTEIN 6.4 gm/dL (6.4-8.2)
[2016-12-01 06:34] LABS: BASO % 0.1 % (0.0-1.0); HEMATOCRIT 24.3 % (42.0-52.0); HEMOGLOBIN 7.8 g/dl (14.0-18.0); IG # 0.1 10*3/uL (0.0-0.1); LYMPH # 1.3 10*3/uL (1.3-4.4); LYMPH % 18.1 % (27.0-41.0); MEAN CELL VOLUME 97.2 fl (80.0-94.0); MEAN CORPUSCULAR HGB 31.2 pg (27.0-31.0); MEAN CORPUSCULAR HGB CONC 32.1 g/dl (33.0-37.0); MEAN PLATELET VOLUME 9.8 fl (9.6-12.3); MONO # 0.8 10*3/uL (0.1-1.0); NEUT # 4.8 10*3/uL (2.3-7.9); NEUT % 68.4 % (47.0-73.0); RED CELL DISTRI WIDTH 14.4 % (0-14.5)
[2016-12-01 06:47] LABS: IRF 34.2 % (2.4-13.3); PLATELET COUNT AUTOMATED 248 10*3/uL (130-400); RET-He 31.6 pg (32.1-37.9)
[2016-12-01 08:00] VITALS: BP 154/56
[2016-12-01 12:00] VITALS: BP 137/55
[2016-12-01] MEDS ORDERED: ENOXAPARIN30 MG/0.2 SC (14:20)
[2016-12-01] MEDS ORDERED: FEROSUL325 MG PO (14:31)
[2016-12-01] MEDS ORDERED: MIRALAX POWDER255 GM PO (15:10)
[2016-12-01 16:00] VITALS: BP 124/58
== END 2016-12-01 16:31 | DRG 480 ==
LOC: ED 07:33 → 4E 10:54 → EDHOLD 10:54 → 4E 11:13
PROVIDERS: Emergency Medicine; Internal Medicine; Internal Medicine Nephrology; Orthopaedic Surgery
PROC: 0QH704Z Insertion of Internal Fixation Device into Left Upper Femur, Open Approach (ICD-10-PCS; principal; 2016-11-25)
DX: S72.142A Displaced intertrochanteric fracture of left femur, initial encounter for closed fracture (principal); N17.0 Acute kidney failure with tubular necrosis; G93.40 Encephalopathy, unspecified; I11.0 Hypertensive heart disease with heart failure; I50.32 Chronic diastolic (congestive) heart failure; F17.210 Nicotine dependence, cigarettes, uncomplicated; D50.9 Iron deficiency anemia, unspecified; E44.1 Mild protein-calorie malnutrition; E86.0 Dehydration; E11.65 Type 2 diabetes mellitus with hyperglycemia; K59.00 Constipation, unspecified; G25.81 Restless legs syndrome; E78.5 Hyperlipidemia, unspecified; W18.39XA Other fall on same level, initial encounter; E04.1 Nontoxic single thyroid nodule; J44.9 Chronic obstructive pulmonary disease, unspecified; F03.90 Unspecified dementia, unspecified severity, without behavioral disturbance, psychotic disturbance, mood disturbance, and anxiety; K21.9 Gastro-esophageal reflux disease without esophagitis; Z86.73 Personal history of transient ischemic attack (TIA), and cerebral infarction without residual deficits; Z91.19 Patient's noncompliance with other medical treatment and regimen; Z82.3 Family history of stroke; Z80.1 Family history of malignant neoplasm of trachea, bronchus and lung; Y93.89 Activity, other specified; Y92.128 Other place in nursing home as the place of occurrence of the external cause; Y99.8 Other external cause status; Z79.4 Long term (current) use of insulin; Z68.25 Body mass index [BMI] 25.0-25.9, adult

== ENCOUNTER → 2016-12-16 | Outpatient (CLI) | payer MEDICARE ==
[~2016-12-16] MED LIST changes: +ENOXAPARIN30 MG/0.2 SC; +FEROSUL325 MG PO; +LIPITOR20 MG PO; +MIRALAX POWDER255 GM PO
== END | disposition home or self-care (01) ==
LOC: ORTHO 00:27
DX: S72.002D Fracture of unspecified part of neck of left femur, subsequent encounter for closed fracture with routine healing (principal); X58.XXXD Exposure to other specified factors, subsequent encounter

== ENCOUNTER → 2017-01-23 | Outpatient (CLI) | payer MEDICARE | END | disposition home or self-care (01) | LOC: ORTHO 01:39 | DX: S72.092D Other fracture of head and neck of left femur, subsequent encounter for closed fracture with routine healing (principal); X58.XXXD Exposure to other specified factors, subsequent encounter ==

== ENCOUNTER 2017-01-27 14:12 | Inpatient (IN) | payer MEDICARE ==
[~2017-01-27] VITALS: Ht 180.3 cm; Wt 83.5 kg
--- NOTE | ~2017-01-27 | CON ---
[place], [place] REPORT OF CONSULTATION NAME: ANGÉLICA SNOW SR [facility] #: [id number] UNIT #: [id number] ROOM: 524 DOCTOR: EMILIANA DAVIES MD BIRTHDATE: [birth year] DOS: 01/28/2017 REASON FOR CONSULTATION: Syncope. HISTORY OF PRESENT ILLNESS: This is one of several admissions for the patient for syncope. He is an 86-year-old man with a history of vascular disease including previous stroke with residual right-sided weakness. He also has diabetes, hypertension, hyperlipidemia and dementia. I have seen him on 2 previous occasions for syncope. The first occurred in February 2015 when he presented after losing consciousness in a chair. His family felt that he may have taken an extra dose of Requip prior to that admission. The second episode occurred in August 2016. He was reportedly lying on a therapy table and was receiving range of motion activities for his leg. Witnesses said that he became diaphoretic and then lost consciousness while supine. In the hospital, his evaluation was normal. Specifically, the lower extremity venous ultrasound showed no evidence for DVT. Monitor showed no significant arrhythmias and an echocardiogram done on 08/24/2016 showed normal left ventricular size, wall motion and systolic function with stage 1 diastolic relaxation abnormalities. No significant valve abnormalities were noted. The patient continues to reside at a [facility]. Once again, he was at physical therapy at the [facility] when he apparently had a syncopal episode, according to staff. Emergency medical services state that on their arrival, his heart rate was in the 30s and they gave him atropine. Upon arrival to the emergency room, he told physicians that he "felt fine." Unfortunately, no rhythm strips were obtained at the time of the episode. He has been monitored since his arrival at [facility] and heart rates have been consistently in the 60 beat per minute range. He rarely drifts below 58 beats per minute and never into the 30s. PAST MEDICAL HISTORY: Includes 1. Obstructive lung disease. 2. Dementia. 3. Type 2 diabetes mellitus. 4. Gastroesophageal reflux disease. 5. History of stroke. 6. Hyperlipidemia. 7. Hypertension. 8. Restless leg syndrome. 9. Previous appendectomy. 10. Two previous syncopal episodes in February 2015 and August 2016. FAMILY HISTORY: The patient's father at age 85 from a stroke. His mother of lung cancer at age 57. MEDICATIONS: Prior to admission Breo Ellipta 200/25 one inhalation daily, Incruse Ellipta 62.5 mcg 1 inhalation daily, albuterol metered dose inhaler 2 puffs q.6 hours p.r.n., fluticasone nasal spray 1 spray in the nares daily, prednisolone acetate eyedrops in the left eye daily, aspirin 81 mg daily, atenolol 50 mg daily, atorvastatin 20 mg at bedtime, cholecalciferol 2000 units [place], [place] REPORT OF CONSULTATION NAME: ANGÉLICA SNOW SR UNIT #: [id number] ROOM: 524 DOCTOR: EMILIANA DAVIES MD BIRTHDATE: [birth year] daily, donepezil 10 mg at bedtime, iron sulfate 325 mg daily, furosemide 40 mg daily, guaifenesin with dextromethorphan p.r.n. cough, lisinopril 10 mg daily, memantine 5 mg b.i.d., pantoprazole 40 mg daily, polyethylene glycol 17 grams p.o. daily p.r.n. constipation, ropinirole 1 mg daily, Ex-Lax 15 mg at bedtime p.r.n., tamsulosin 0.4 mg daily, Dulcolax suppository p.r.n. constipation, Levemir insulin 22 units subcutaneously daily and 10 units subcutaneously at bedtime. ALLERGIES: The patient has no known drug allergies. REVIEW OF SYSTEMS: Difficult because of the patient's dementia, but he denies any complaints at this time. He states that he remembers passing out, but states he was awake and then he was unconscious. He cannot tell me any more details. He denies headache, diplopia or loss of vision. He denies focal weakness. He denies fevers, chills or sweats. He denies change in appetite or weight. He denies nausea or vomiting. He denies hemoptysis or hematemesis. He does have chronic dyspnea, states that he wheezes "all the time." He denies any change in bowel or bladder habits and denies any blood in his stools or urine. He denies swelling in his right leg, but he states that his left leg is "thick." He denies any blood clots. He denies any swelling of his feet. He denies any polydipsia or polyuria. He denies heat or cold intolerance. The remainder of the review of systems is negative except as noted above. SOCIAL HISTORY: The patient has used chewing tobacco, but does not consume alcohol or illicit drugs. He is a former smoker. PHYSICAL EXAMINATION: GENERAL: The patient is an elderly white male who is awake, alert and oriented to self. VITAL SIGNS: Pulse is 60 and regular, blood pressure is 167/41. HEENT: Normocephalic, atraumatic. Extraocular muscles are intact. Sclerae are clear. Pupils are equal, round and react to light. The oral mucosa is moist. Tongue is midline. NECK: Supple. He has no jugular distention or hepatojugular reflux. Carotids are full. I heard no bruits. He had no neck or supraclavicular masses and no thyromegaly. LUNGS: Respirations are unlabored. His chest has markedly decreased breath sounds bilaterally with expiratory prolongation and scattered wheezes bilaterally. He has no presacral edema or chest wall tenderness. CARDIOVASCULAR: His heart has a regular rhythm. He has a fourth heart sound, but no third heart sound. He has no obvious murmurs. The PMI is not displaced. There is no precordial heave, lift or thrill. ABDOMEN: Soft and normally active without masses, organomegaly or bruits. EXTREMITIES: Showed no edema. He did not have any palpable cords or Homans sign on either side. Pedal pulses were diminished, but palpable in the feet bilaterally. LABORATORY DATA: I reviewed his electrocardiogram, which showed sinus rhythm with frequent PVCs. He has a left anterior fascicular block and poor precordial R-wave progression, but no acute ST or T-wave changes. [place], [place] REPORT OF CONSULTATION NAME: GWENDOLYN SRANGÉLICA Erick UNIT #: [id number] ROOM: 524 DOCTOR: EMILIANA DAVIES MD BIRTHDATE: [birth year] Hemoglobin is 10.2 with hematocrit 32.2. There are 7800 white cells. Sodium is 140, potassium 3.8, BUN 33, creatinine 1.28. Troponins have been negative times 3. TSH is normal at 2.74. Chest x-ray showed no acute pulmonary disease. IMPRESSIONS: 1. Recurrent syncope. This apparently the third episode he has had in the last 2 years. Inpatient evaluations in the past, as recently as August 2016, have been unrevealing. An echocardiogram at that time showed no significant structural disease and he has not had any acute EKG changes or changes in his examination since then. He was reportedly bradycardiac at the scene; however, this was not documented. He does have PVCs on his electrocardiogram and if the pulse were obtained by automatic blood pressure machine, pulse oximetry device or even by radial pulse, his true pulse may have been underestimated. 2. History of hypertension. 3. Dementia. 4. Type 2 diabetes mellitus. 5. Hypertension. 6. Hyperlipidemia. PLAN: The patient is on a monitor and I would continue this for the time being. I agree with stopping his beta megan and his loop diuretic. I would probably try to keep him on a small dose of GENE inhibitor to help control his blood pressure. We are monitoring his renal functions and certainly use of an GENE inhibitor would be determined by whether or not he is developing renal insufficiency. At this time, we do not have sufficient evidence to say that he truly had bradycardia and that this was the cause of his syncope. Therefore, he does not have an indication for pacemaker therapy. He has had 3 episodes of syncope in 2 years. Monitoring may not be adequate to catch these episodes and if he continues to have syncopal episodes, an implantable loop recorder may be necessary. For now, I would simply withhold his loop diuretic and his beta megan and observe him. We will follow him with his other physicians and I thank the hospitalist physicians for asking our advice regarding his care. EMILIANA DAVIES MD CM:CONSTR:REPORT OF CONSULTATION 1736 01/28/17 916 interface
--- NOTE | ~2017-01-27 | PR ---
[place], [place] PROGRESS NOTE NAME: ANGÉLICA SNOW SR [id number] UNIT #: [id number] ROOM: 524 DOCTOR: ADILENE WORTHINGTON MD BIRTHDATE: [birth year] DOS: 01/30/2017 SUBJECTIVE: The patient is sitting up in bed having his breakfast; from a cardiac point of view, he denies any specific cardiac complaint. No chest pain, no symptomatic palpitation, no dizziness. OBJECTIVE: VITAL SIGNS: Blood pressure 166/68, heart rate 69, respiratory rate of 14, temperature 97.6. NECK: Good upstroke, no bruit. HEART: S1, S2 with no rub. LUNGS: Decreased air movement, but no tesfaye wheezing or rales. ABDOMEN: Soft, nontender, present bowel sounds. EXTREMITIES: Lower extremities, mild ankle edema. LABORATORY DATA: White count 4.4, hemoglobin 10.2, potassium 4.4 and GFR is over more than 60%. ASSESSMENT AND PLAN: Current presentation with recurrent syncope that being counted the third time over the past 2 years. The patient is being closely followed by Dr. Cantu. His notes were reviewed. So far, the patient has been doing well from the Cardiology point of view; we will hold on implementing any diuretics or beta megan for now. The patient can be discharged home from the cardiac point of view with the note to implement implantable loop recorder should there be any recurrence of his syncope. His slight drop in blood pressure does not constitute any significance in the sense that it does not go to a degree that can cause syncope. No further cardiac testing. Patient will follow up with Dr. Cantu within 2-4 weeks as an outpatient. ADILENE WORTHINGTON MD CM:PNTRANS [phone] ADILENE WORTHINGTON MD 01/30/172339 interface
--- NOTE | ~2017-01-27 | PR ---
[place], [place] PROGRESS NOTE NAME: ANGÉLICA SNOW SR [facility] #: [id number] UNIT #: [id number] ROOM: 524 DOCTOR: EMILIANA DAVIES MD BIRTHDATE: [birth year] DOS: 01/29/2017 CARDIOLOGY PROGRESS NOTE. SUBJECTIVE: The patient was seen at his bedside today. No family was in attendance. He is being seen for followup of a syncopal episode and reported bradycardia. Since he has been in the hospital, his monitor has not shown any significant bradycardic episodes. He does have PVCs on exam and it may be that some of the bradycardia was caused by pulse deficits that could not be measured by oximetry machinery or noninvasive blood pressure monitoring. We have, however, been holding atenolol in case he does truly have significant bradycardia. Orthostatic blood pressures have been obtained. At baseline, he is hypertensive and therefore, orthostatics have been positive, even though he remains normotensive. For instance, his last orthostatics showed a systolic blood pressure of 179 when he was supine, 187 when he sat and 144 when he was standing. Technically, this is an orthostatic drop; however, his blood pressure does not fall far enough to cause symptoms. The patient tells me that he feels well and denies any lightheadedness, palpitations or syncope. PHYSICAL EXAMINATION: VITAL SIGNS: Today, his pulse is 65 with an occasional premature beat. Blood pressure is 159/90, he is afebrile. NECK: Supple. He has no jugular distention. CHEST: Crackles senior care up. He has no presacral edema. HEART: Has a regular rhythm with an occasional premature beat. ABDOMEN: Benign. EXTREMITIES: Showed no edema. I do not think that further IV fluids will be of any great benefit and therefore, I did stop them. We will be increasing his GENE inhibitor to better control his resting blood pressure. An echocardiogram was done during his recent hospitalization and will not be repeated. IMPRESSION: 1. Recurrent syncope. This is the third episode the patient has had documented in the last 2 years. Inpatient evaluations in the past have been unrevealing. We will keep him on a monitor and adjust his GENE inhibitor, but I would avoid beta blockers and diuretics if possible. 2. History of hypertension. 3. Dementia. 4. Type 2 diabetes. 5. Hypertension. 6. Hyperlipidemia. PLAN: I would continue his monitor. He is being treated for respiratory infection. As noted, we will continue to adjust his GENE inhibitor for better [place], [place] PROGRESS NOTE NAME: AN[facility]ICA SNOW SR [id number] UNIT #: [id number] ROOM: 524 DOCTOR: KEKE GUO,EMILIANA BIRTHDATE: [birth year] blood pressure control, but avoid loop diuretics and beta blockers for the time being. As mentioned yesterday, if we are concerned about recurrent episodes of syncope, he may require placement of an implantable loop recorder in order to get an adequate idea of the cause of his episodes. I thank the hospitalist physicians for asking our advice regarding his care. EMILIANA DAVIES MD CM:PNTRANS [id number] EMILIANA DAVIES MD 01/29/17 1403 interface
[2017-01-27 14:32] VITALS: BP 105/36
[2017-01-27 14:33] LABS: BASO % 0.1 % (0.0-1.0); HEMATOCRIT 32.2 % (42.0-52.0); HEMOGLOBIN 10.2 g/dl (14.0-18.0); LYMPH # 1.4 10*3/uL (1.3-4.4); LYMPH % 18.2 % (27.0-41.0); MEAN CELL VOLUME 98.2 fl (80.0-94.0); MEAN CORPUSCULAR HGB 31.1 pg (27.0-31.0); MEAN CORPUSCULAR HGB CONC 31.7 g/dl (33.0-37.0); MEAN PLATELET VOLUME 9.2 fl (9.6-12.3); MONO # 0.7 10*3/uL (0.1-1.0); MONO % 9.1 % (3.0-9.0); NEUT # 5.6 10*3/uL (2.3-7.9); NEUT % 72.1 % (47.0-73.0); PLATELET COUNT AUTOMATED 171 10*3/uL (130-400); RED BLOOD COUNT 3.28 10*6/uL (4.50-5.90); RED CELL DISTRI WIDTH 12.9 % (0-14.5); WHITE BLOOD COUNT 7.8 10*3/uL (4.8-10.8)
[2017-01-27 14:43] LABS: ACT PARTIAL THROMBO TIME 22.2 SECONDS (20.8-31.5)
[2017-01-27 14:48] LABS: ALBUMIN 3.1 gm/dl (3.1-4.5); ALKALINE PHOSPHATASE 97 U/L (45-117); BUN 37 mg/dl (7-24); CHLORIDE 103 mmol/L (98-107); CPK 35 U/L (39-308); CREATININE 1.42 mg/dL (0.70-1.30); LIPASE 128 U/L (73-393); MAGNESIUM 2.4 mg/dL (1.5-2.1); POTASSIUM 5.1 mmol/L (3.5-5.1); SGOT/AST 12 IU/L (3-35); SGPT/ALT 24 U/L (12-78); SODIUM 141 mmol/L (136-145); TOTAL PROTEIN 6.7 gm/dL (6.4-8.2)
[2017-01-27 14:49] LABS: CKMB < 0.5 ng/ml (0.5-3.6); TROPONIN I < 0.015 ng/ml (<0.045)
[2017-01-27 15:37] VITALS: BP 101/44
[2017-01-27 16:00] VITALS: BP 106/37
--- NOTE | 2017-01-27 16:07 | NUR ---
A 86, admitted to [facility], under the services of NISHI Bauer MD with a diagnosis of DEHYDRATION SYNCOPE. Chief complaint is PASSED OUT DURING THERAPY. Patient arrived via ambulance from ER. Monitor applied. Initial assessment completed. Vital signs taken and recorded. NISHI BAUER MD notified of admission to the unit. Orders received. See assessment for past medical history, medications and allergies. Patient and/or family oriented to unit. [facility] visitation policy reviewed. Clothing/patient valuable form completed. JASEN LAGUNAS
--- NOTE | 2017-01-27 16:39 | NUR ---
DR WESTBROOK CONSULTED AND NOTIFIED OF ADMISSION
--- NOTE | 2017-01-27 17:07 | NUR ---
MEDS RECONCILED FROM [facility] LIST
--- NOTE | 2017-01-27 17:13 | NUR ---
PER PT-HE CAN NOT STAND WELL, ORTHOS DONE LYING AND SITTING ONLY
[2017-01-27 20:00] VITALS: BP 125/34
[2017-01-27 21:15] LABS: BILIRUBIN NEGATIVE (NEGATIVE); BLOOD NEGATIVE (NEGATIVE); CLARITY CLEAR (CLEAR); COLOR YELLOW (YELLOW); GLUCOSE NEGATIVE (NEGATIVE); KETONE NEGATIVE (NEGATIVE); LEUKO ESTERASE NEGATIVE (NEGATIVE); NITRITE NEGATIVE (NEGATIVE); PH 5.5 (5.0-9.0); UROBILINOGEN 0.2 E.U./dl (0.2-1.0)
[2017-01-27 21:24] LABS: HYALINE CAST TNTC; WBC 0-2 wbc/hpf (0-5)
[2017-01-27 21:25] LABS: BACTERIA TRACE; EPITHELIAL CELLS 0-2
[2017-01-28] VITALS: BP 118/36
--- NOTE | 2017-01-28 03:58 | NUR ---
24 HR chart check completed.
[2017-01-28 04:00] VITALS: BP 140/42
[2017-01-28 04:41] LABS: BASO % 0.2 % (0.0-1.0); HEMATOCRIT 31.5 % (42.0-52.0); HEMOGLOBIN 10.1 g/dl (14.0-18.0); LYMPH # 1.9 10*3/uL (1.3-4.4); LYMPH % 29.1 % (27.0-41.0); MEAN CELL VOLUME 97.8 fl (80.0-94.0); MEAN CORPUSCULAR HGB 31.4 pg (27.0-31.0); MEAN CORPUSCULAR HGB CONC 32.1 g/dl (33.0-37.0); MONO # 0.8 10*3/uL (0.1-1.0); MONO % 12.7 % (3.0-9.0); NEUT # 3.8 10*3/uL (2.3-7.9); NEUT % 57.7 % (47.0-73.0); PLATELET COUNT AUTOMATED 162 10*3/uL (130-400); RED BLOOD COUNT 3.22 10*6/uL (4.50-5.90); RED CELL DISTRI WIDTH 12.9 % (0-14.5); WHITE BLOOD COUNT 6.5 10*3/uL (4.8-10.8)
[2017-01-28 04:53] LABS: ACT PARTIAL THROMBO TIME 23.7 SECONDS (20.8-31.5)
[2017-01-28 05:01] LABS: BUN 33 mg/dl (7-24); CHLORIDE 101 mmol/L (98-107); MAGNESIUM 2.2 mg/dL (1.5-2.1)
[2017-01-28 05:14] LABS: ALKALINE PHOSPHATASE 94 U/L (45-117); CREATININE 1.28 mg/dL (0.70-1.30); PHOSPHOROUS 2.7 mg/dL (2.5-4.9); SGOT/AST 12 IU/L (3-35); SGPT/ALT 21 U/L (12-78); TOTAL PROTEIN 6.5 gm/dL (6.4-8.2)
[2017-01-28 05:22] LABS: POTASSIUM 3.8 mmol/L (3.5-5.1); SODIUM 140 mmol/L (136-145)
[2017-01-28 07:03] LABS: VITAMIN D, 25-HYDROXY 40.9 ng/mL (30-100)
[2017-01-28 08:00] VITALS: BP 165/41
[2017-01-28 12:00] VITALS: BP 153/43
--- NOTE | 2017-01-28 12:34 | NUR ---
[id number] TO 524, REPORT GIVEN, ALL BELONGINGS WITH PT
[2017-01-28 16:00] VITALS: BP 167/41
--- NOTE | 2017-01-28 18:04 | NUR ---
DR DAVIES ON THE FLOOR AT THIS TIME AND MADE AWARE OF PT'S ORTHOSTATIC ELEVATED BP'S.
[2017-01-28 20:00] VITALS: BP 130/70
[2017-01-29] VITALS: BP 150/70
[2017-01-29 06:17] LABS: BASO % 0.2 % (0.0-1.0); HEMATOCRIT 30.7 % (42.0-52.0); HEMOGLOBIN 10.2 g/dl (14.0-18.0); LYMPH # 1.9 10*3/uL (1.3-4.4); LYMPH % 29.3 % (27.0-41.0); MEAN CELL VOLUME 95.6 fl (80.0-94.0); MEAN CORPUSCULAR HGB 31.8 pg (27.0-31.0); MEAN CORPUSCULAR HGB CONC 33.2 g/dl (33.0-37.0); MEAN PLATELET VOLUME 9.5 fl (9.6-12.3); MONO # 0.8 10*3/uL (0.1-1.0); MONO % 12.6 % (3.0-9.0); NEUT # 3.8 10*3/uL (2.3-7.9); NEUT % 57.4 % (47.0-73.0); PLATELET COUNT AUTOMATED 154 10*3/uL (130-400); RED BLOOD COUNT 3.21 10*6/uL (4.50-5.90); RED CELL DISTRI WIDTH 12.9 % (0-14.5); WHITE BLOOD COUNT 6.5 10*3/uL (4.8-10.8)
[2017-01-29 06:44] LABS: CHLORIDE 106 mmol/L (98-107); POTASSIUM 3.9 mmol/L (3.5-5.1); SODIUM 140 mmol/L (136-145)
[2017-01-29 06:45] LABS: BUN 17 mg/dl (7-24)
[2017-01-29 08:00] VITALS: BP 180/60
[2017-01-29 12:00] VITALS: BP 159/90
--- NOTE | 2017-01-29 14:13 | NUR ---
DR DAVIES AND DR BALL IN TO SEE PT EARLIER. NEW ORDERS RECEIVED.
[2017-01-29 16:00] VITALS: BP 139/47
[2017-01-29 20:00] VITALS: BP 149/50
--- NOTE | 2017-01-29 20:30 | NUR ---
PATIENT LYING IN BED, AWAKE AND TALKATIVE. VOICES NO COMPLAINTS, VERY PLEASANT. HEPLOCK INTACT TO RIGHT WRIST. MEDICATION TAKEN WITHOUT PROBLEMS.
--- NOTE | 2017-01-29 21:55 | NUR ---
BGM= 291, 10 UNITS GIVEN 0F NOVOLOG PER ORDER.
[2017-01-30] VITALS: BP 137/57
[2017-01-30 04:00] VITALS: BP 138/62
[2017-01-30 06:35] LABS: BASO % 0.2 % (0.0-1.0); HEMOGLOBIN 10.2 g/dl (14.0-18.0); LYMPH # 0.7 10*3/uL (1.3-4.4); LYMPH % 16.7 % (27.0-41.0); MEAN CELL VOLUME 93.8 fl (80.0-94.0); MEAN CORPUSCULAR HGB 31.9 pg (27.0-31.0); MEAN PLATELET VOLUME 9.9 fl (9.6-12.3); MONO # 0.2 10*3/uL (0.1-1.0); MONO % 3.7 % (3.0-9.0); NEUT # 3.5 10*3/uL (2.3-7.9); NEUT % 78.7 % (47.0-73.0); PLATELET COUNT AUTOMATED 158 10*3/uL (130-400); RED CELL DISTRI WIDTH 12.8 % (0-14.5); WHITE BLOOD COUNT 4.4 10*3/uL (4.8-10.8)
[2017-01-30 06:47] LABS: BUN 16 mg/dl (7-24); CHLORIDE 105 mmol/L (98-107); CREATININE 1.05 mg/dL (0.70-1.30); POTASSIUM 4.4 mmol/L (3.5-5.1); SODIUM 139 mmol/L (136-145)
[2017-01-30 08:00] VITALS: BP 166/68
--- NOTE | 2017-01-30 08:24 | NUR ---
PT RESTING IN BED. NO DISTRESS NOTED, WILL MONITOR
--- NOTE | 2017-01-30 08:30 | NUR ---
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 PT IS LTC AT [facility] AND PLANS TO RETURN UPON DC.
[2017-01-30 12:00] VITALS: BP 155/56
[2017-01-30 16:00] VITALS: BP 133/53
[2017-01-30 20:00] VITALS: BP 144/51
--- NOTE | 2017-01-30 21:40 | NUR ---
PATIENT IS RESTING QUIETLY IN BED. NO VOICED COMPLAINTS AT THIS TIME. RESPIRATIONS EASY/REGULAR. CALL LIGHT IS IN REACH. WILL MONITOR.
[2017-01-31] VITALS: BP 111/83
--- NOTE | 2017-01-31 00:41 | NUR ---
PATIENT SLEEPING. NO SXS OF DISTRESS. RESPIRATIONS EASY/REGULAR. CALL LIGHT IS IN REACH
--- NOTE | 2017-01-31 06:31 | NUR ---
PATIENT SLEPT THROUGHOUT SHIFT WITH NO VOICED COMPLAINTS. PLEASANT/COOPERATIVE WITH CARE. RESPIRATIONS EASY/REGULAR. CALL LIGHT IN REACH.
[2017-01-31 07:22] LABS: BASO % 0.1 % (0.0-1.0); HEMATOCRIT 33.3 % (42.0-52.0); HEMOGLOBIN 10.8 g/dl (14.0-18.0); LYMPH % 10.7 % (27.0-41.0); MEAN CELL VOLUME 94.6 fl (80.0-94.0); MEAN CORPUSCULAR HGB 30.7 pg (27.0-31.0); MEAN CORPUSCULAR HGB CONC 32.4 g/dl (33.0-37.0); MEAN PLATELET VOLUME 10.1 fl (9.6-12.3); MONO # 0.5 10*3/uL (0.1-1.0); MONO % 5.5 % (3.0-9.0); NEUT # 7.4 10*3/uL (2.3-7.9); NEUT % 83.2 % (47.0-73.0); PLATELET COUNT AUTOMATED 188 10*3/uL (130-400); RED BLOOD COUNT 3.52 10*6/uL (4.50-5.90); WHITE BLOOD COUNT 8.9 10*3/uL (4.8-10.8)
[2017-01-31 08:00] VITALS: BP 164/50
--- NOTE | 2017-01-31 08:48 | NUR ---
PHYSICAL THERAPY PAtient sleeping, was "up all night." PAtient is correction care- will attempt later this date or at a later date. Thank you for this referral. Ann Marie Farah,PT
[2017-01-31 13:00] VITALS: BP 160/62
[2017-01-31] MEDS ORDERED: PREDNISONE10 MG PO (14:01)
[2017-01-31] MEDS ORDERED: LEVAQUIN500 M2 PO (14:01)
--- NOTE | 2017-01-31 14:08 | NUR ---
patient being discharged back to [facility]. Transportation scheduled for 5PM with [facility]. NH, nursing and family notified.
--- NOTE | 2017-01-31 14:51 | NUR ---
REPORT CALLED TO [facility].
--- NOTE | 2017-01-31 15:21 | NUR ---
ASSUMED CARE OF PATIENT 1500. AMBULANCE HERE TO TAKE PATIENT BACK TO [facility], IV WAS REMOVED, NO MONITOR ON PATIENT. PT CLOTHES SENT BACK WITH PATIENT.
== END 2017-01-31 14:51 | disposition other institution (70) | DRG 314 ==
LOC: ED 14:12 → EDHOLD 15:27 → 5E 15:27 → ICCU 15:36 → 5E 01-28 12:13
PROVIDERS: Emergency Medicine; Internal Medicine; Internal Medicine Cardiovascular Disease; Internal Medicine Nephrology; ADMIT Internal Medicine
DX: I95.9 Hypotension, unspecified (principal); N17.0 Acute kidney failure with tubular necrosis; E44.0 Moderate protein-calorie malnutrition; I50.32 Chronic diastolic (congestive) heart failure; I11.0 Hypertensive heart disease with heart failure; D53.9 Nutritional anemia, unspecified; E11.9 Type 2 diabetes mellitus without complications; J44.1 Chronic obstructive pulmonary disease with (acute) exacerbation; E86.0 Dehydration; E83.41 Hypermagnesemia; F03.90 Unspecified dementia, unspecified severity, without behavioral disturbance, psychotic disturbance, mood disturbance, and anxiety; D72.810 Lymphocytopenia; K21.9 Gastro-esophageal reflux disease without esophagitis; E78.5 Hyperlipidemia, unspecified; G25.81 Restless legs syndrome; R62.7 Adult failure to thrive; Z79.4 Long term (current) use of insulin; Z72.0 Tobacco use; Z79.899 Other long term (current) drug therapy; Z79.82 Long term (current) use of aspirin; Z86.73 Personal history of transient ischemic attack (TIA), and cerebral infarction without residual deficits; Z91.14 Patient's other noncompliance with medication regimen; Z90.49 Acquired absence of other specified parts of digestive tract; Z98.41 Cataract extraction status, right eye; Z82.3 Family history of stroke; Z80.1 Family history of malignant neoplasm of trachea, bronchus and lung; Z68.25 Body mass index [BMI] 25.0-25.9, adult

== ENCOUNTER → 2017-03-08 | Outpatient (CLI) | payer MEDICARE ==
[~2017-03-08] MED LIST changes: +LEVAQUIN500 M2 PO
== END | disposition home or self-care (01) ==
LOC: ORTHO 03:08
DX: S72.145D Nondisplaced intertrochanteric fracture of left femur, subsequent encounter for closed fracture with routine healing (principal); X58.XXXD Exposure to other specified factors, subsequent encounter

== ENCOUNTER 2017-03-20 06:51 | Emergency (ER) | payer MEDICARE ==
[~2017-03-20] VITALS: Ht 177.8 cm; Wt 81.6 kg
[2017-03-20 07:01] LABS: BASO % 0.5 % (0.0-1.0); HEMATOCRIT 34.1 % (42.0-52.0); LYMPH % 15.3 % (27.0-41.0); MEAN CELL VOLUME 95.3 fl (80.0-94.0); MEAN CORPUSCULAR HGB 30.7 pg (27.0-31.0); MEAN CORPUSCULAR HGB CONC 32.3 g/dl (33.0-37.0); MEAN PLATELET VOLUME 9.6 fl (9.6-12.3); MONO # 0.6 10*3/uL (0.1-1.0); MONO % 9.9 % (3.0-9.0); NEUT # 4.8 10*3/uL (2.3-7.9); NEUT % 74.1 % (47.0-73.0); PLATELET COUNT AUTOMATED 137 10*3/uL (130-400); RED BLOOD COUNT 3.58 10*6/uL (4.50-5.90); RED CELL DISTRI WIDTH 13.9 % (0-14.5); WHITE BLOOD COUNT 6.5 10*3/uL (4.8-10.8)
[2017-03-20 07:09] LABS: ACT PARTIAL THROMBO TIME 24.1 SECONDS (20.8-31.5)
[2017-03-20 07:10] LABS: BILIRUBIN NEGATIVE (NEGATIVE); BLOOD NEGATIVE (NEGATIVE); CLARITY CLEAR (CLEAR); COLOR YELLOW (YELLOW); GLUCOSE NEGATIVE (NEGATIVE); KETONE NEGATIVE (NEGATIVE); LEUKO ESTERASE 1+ (NEGATIVE); NITRITE NEGATIVE (NEGATIVE); UROBILINOGEN 0.2 E.U./dl (0.2-1.0)
[2017-03-20 07:15] LABS: ALBUMIN 3.1 gm/dl (3.1-4.5); ALKALINE PHOSPHATASE 109 U/L (45-117); BUN 12 mg/dl (7-24); CHLORIDE 105 mmol/L (98-107); CREATININE 1.05 mg/dL (0.70-1.30); SGOT/AST 10 IU/L (3-35); SGPT/ALT 12 U/L (12-78); SODIUM 143 mmol/L (136-145); TOTAL PROTEIN 7.1 gm/dL (6.4-8.2)
[2017-03-20 07:18] LABS: BACTERIA 1+
[2017-03-20 07:19] LABS: HYALINE CAST 20-30
[2017-03-20 07:42] VITALS: BP 166/64
== END 2017-03-20 08:27 | disposition home or self-care (01) ==
LOC: ED 06:51
PROVIDERS: Emergency Medicine
DX: E11.649 Type 2 diabetes mellitus with hypoglycemia without coma (principal); I11.0 Hypertensive heart disease with heart failure; I50.30 Unspecified diastolic (congestive) heart failure; Z86.73 Personal history of transient ischemic attack (TIA), and cerebral infarction without residual deficits; E78.5 Hyperlipidemia, unspecified; K21.9 Gastro-esophageal reflux disease without esophagitis; Z79.4 Long term (current) use of insulin; J45.909 Unspecified asthma, uncomplicated; Z79.02 Long term (current) use of antithrombotics/antiplatelets; Z79.899 Other long term (current) drug therapy; Z87.891 Personal history of nicotine dependence

== ENCOUNTER → 2017-07-28 | Outpatient (CLI) | payer MEDICARE | END | disposition home or self-care (01) | LOC: ORTHO 01:34 | DX: S72.092D Other fracture of head and neck of left femur, subsequent encounter for closed fracture with routine healing (principal); X58.XXXD Exposure to other specified factors, subsequent encounter ==

== ENCOUNTER 2018-05-15 | Inpatient (IN) | payer MEDICARE ==
[2018-05-15] VITALS (9 sets, daily range): BP systolic 86–133; BP diastolic 40–69
[~2018-05-15] MED LIST changes: +LEVEMIR100 UNIT/1 SC
--- NOTE | ~2018-05-15 | EKG ---
[place], [place] ELECTROCARDIOGRAM REPORT NAME: ANGÉLICA SNOW SR UNIT #: [id number] ROOM: DOCTOR: NASH DRAFT REPORT BIRTHDATE: [birth year] [facility] Test Date: 2018-05-15 Test Time: 10:35:20 Pat Name: ANGÉLICA SNOW Department: Room: Gender: Pipe Caulker: : 1930 Requested By: VIOLETA HIRSCH Order Number: [id number] Reading MD: Measurements Intervals [place] Rate: 81 P: 20 WV: 162 QRS: -18 QRSD: 110 T: 98 QT: 372 QTc: 432 Interpretive Statements Sinus rhythm Probable left ventricular hypertrophy Nonspecific T abnormalities, lateral leads No previous ECG available for comparison CM:EKGRPT:ELECTROCARDIOGRAM REPORT [id number] VIOLETA HUERTA DRAFT REPORT VIOLETA HIRSCH DO
[2018-05-15 10:48] LABS: HEMATOCRIT 31.5 % (42.0-52.0); MEAN CELL VOLUME 99.7 fl (80.0-94.0); MEAN CORPUSCULAR HGB 31.6 pg (27.0-31.0); MEAN CORPUSCULAR HGB CONC 31.7 g/dl (33.0-37.0); MEAN PLATELET VOLUME 9.9 fl (9.6-12.3); PLATELET COUNT AUTOMATED 178 10*3/uL (130-400); RED BLOOD COUNT 3.16 10*6/uL (4.50-5.90); RED CELL DISTRI WIDTH 13.5 % (0-14.5); WHITE BLOOD COUNT 9.4 10*3/uL (4.8-10.8)
[2018-05-15 11:00] LABS: ACT PARTIAL THROMBO TIME 26.2 SECONDS (20.8-31.5)
[2018-05-15 11:05] LABS: ALBUMIN 2.3 gm/dl (3.1-4.5); ALKALINE PHOSPHATASE 110 U/L (45-117); BUN 34 mg/dl (7-24); CHLORIDE 107 mmol/L (98-107); CREATININE 2.11 mg/dL (0.70-1.30); LIPASE 73 U/L (73-393); POTASSIUM 4.6 mmol/L (3.5-5.1); SGOT/AST 55 IU/L (3-35); SGPT/ALT 48 U/L (12-78); SODIUM 141 mmol/L (136-145); TOTAL PROTEIN 7.2 gm/dL (6.4-8.2)
[2018-05-15 11:07] LABS: TROPONIN I < 0.015 ng/ml (<0.045)
[2018-05-15 11:10] LABS: BILIRUBIN NEGATIVE (NEGATIVE); BLOOD NEGATIVE (NEGATIVE); CLARITY SL CLOUDY (CLEAR); COLOR YELLOW (YELLOW); GLUCOSE NEGATIVE (NEGATIVE); KETONE NEGATIVE (NEGATIVE); LEUKO ESTERASE NEGATIVE (NEGATIVE); NITRITE NEGATIVE (NEGATIVE); PH 5.5 (5.0-9.0); SPECIFIC GRAVITY 1.025 (1.005-1.030)
[2018-05-15 11:16] LABS: PLATELET SUFFICIENCY NORMAL (NORMAL); TOTAL CELLS COUNTED 100 #CELLS
[2018-05-15 11:26] LABS: BACTERIA 1+
--- NOTE | 2018-05-15 11:50 | NUR ---
PT PLACED ON BEDPAN PER REQUEST. PT TOLERATED.
--- NOTE | 2018-05-15 12:02 | NUR ---
PT TAKEN OFF BEDPAN. NO VOID/BM AT THIS TIME. PT STATES HE DOES NOT WANT TO EAT YET.
--- NOTE | 2018-05-15 13:10 | NUR ---
PHOTO OF LEFT ARM SKIN TAG TAKEN BY ADMISSION NURSE.
--- NOTE | 2018-05-15 13:15 | NUR ---
A 87, admitted to , under the services of MERCEDES Lamas DO with a diagnosis of CHANGE IN MENTAL STATUS. Chief complaint is CHANGE IN MENTAL STATUS. Patient arrived via bed from ER. Monitor applied. Initial assessment completed. Vital signs taken and recorded. MERCEDES LAMAS DO notified of admission to the unit. Orders received. See assessment for past medical history, medications and allergies. Patient and/or family oriented to unit. [facility] visitation policy reviewed. Clothing/patient valuable form completed. LUCIANA SHEIKH
[2018-05-15] MEDS ORDERED: LEVEMIR100 UNIT/1 SC (14:00)
[2018-05-15] MEDS ORDERED: TESSALON PERLE100 MG PO (14:06)
--- NOTE | 2018-05-15 14:18 | NUR ---
DR. KINNEY AWARE OF PATIENTS MED REC BEING UP TO DATE WITH PAPERS SENT FROM [facility]. PATIENT ALSO HAS A SKIN TEAR ON HIS LEFT ARM. PICTURES TAKEN. DR. KINNEY AWARE. STATED SHE WILL PUT IN WOUND CARE ORDERS.
--- NOTE | 2018-05-15 18:01 | NUR ---
WOUND TO LEFT ARM CHANGED PER DOCTORS ORDERS.
[2018-05-16 00:07] VITALS: BP 117/60
[2018-05-16 07:24] LABS: CREATININE 1.86 mg/dL (0.70-1.30); FREE T4 1.29 ng/dl (0.76-1.46); PHOSPHOROUS 2.8 mg/dL (2.5-4.9); POTASSIUM 4.4 mmol/L (3.5-5.1)
[2018-05-16 07:30] LABS: THYROID STIM HORMONE (HS) 1.22 uIU/ml (0.358-4.75)
[2018-05-16 08:00] VITALS: BP 150/62
--- NOTE | 2018-05-16 09:00 | NUR ---
PHYSICAL THERAPY PAtient evaluated on 4, full evaluaion to follow. Continue with PT as per plan of care with fall, alarm and mod (A) precautions. Return to LTC, as prior. PAtient is high complexity via chart review, tests and evaluation:79329. Thank you for this referral. parviz Farah,PT
--- NOTE | 2018-05-16 09:00 | NUR ---
case management visits with patient, patient is a [facility] resident of [facility] and will return when medically stable for discharge
[2018-05-16 09:20] LABS: VITAMIN D, 25-HYDROXY 30.1 ng/mL (30-100)
--- NOTE | 2018-05-16 09:35 | NUR ---
AIR BATTLE MANAGER REMOVED PER ORDER.
--- NOTE | 2018-05-16 09:49 | NUR ---
Occupational Therapy evaluation completed on 4 with full eval to follow. Precautions include fall risk; bed alarm, assist with transfers, impaired cognition, [place]. Patient is moderate complexity level 79645 via chart review, testing and evaluation. Recommend OT per pOC and return to LTC upon discharge. Cristina Macdonald OTR/L
[2018-05-16 12:00] VITALS: BP 156/48
--- NOTE | 2018-05-16 14:04 | NUR ---
GWENDOLYN CALVILLO,ANGÉLICA Suarez [id number] Please refer to the physician's history and physical for past medical history, comorbid conditions, and allergies. Diagnosis: ACUTE RESPIRATORY FAILURE WITH HYPOXIA, ARF, METAB Torrey Score: 15,AT RISK WOUND DESCRIPTIONS: Location of the wound: left forearm Type of wound: skin tear Thickness: Partial Size: 0.2cm x 0.1cm x 0.1cm Tunneling: none Undermining: none Sinus Tract: none Presence of Exudate: Serous Amount: Light Color: Red Odor: None Periwound Skin Appearance: Normal Wound edges: approximated Pain (associated with wound): none at time of assessment How does patient state this happened? pt stated he fell a few days ago Surface the patient is resting on: Isoflex SKIN PREVENTION RECOMMENDATION: 1. Pressure redistribution support surface as appropriate 2. Elevate heels 3. Remove boots/TEDS every shift and reapply 4. Head of bed 30 degrees as tolerated 5. Assess nutrition and hydration 6. Manage moisture 7. Avoid the use of containment devices while in bed 8. Use absorptive products on surfaces limit layers of linens on bed 9. Turn and reposition every 1-2 hours in bed and every 1 hour in chair as tolerated 10. Weight shifts every 15 minutes while up in chair 11. Offloading with pillows or device to keep heels elevated off bed 12. Monitor skin at least every shift 13. Inspect under medical devices twice a day WOUND TREATMENT RECOMMENDATIONS: continue current skin tear guidelines.
--- NOTE | 2018-05-16 14:17 | NUR ---
Recommend follow up for wound care in outpatient setting patient being discharge to another facility at this time.
[2018-05-16 16:00] VITALS: BP 123/71
--- NOTE | 2018-05-16 16:00 | NUR ---
PT RESTING IN BED, NO DISTRESS NOTED. CALL LIGHT WITHIN REACH/BED ALARM MAINTAINED.
[2018-05-16 20:00] VITALS: BP 101/80
[2018-05-17] VITALS: BP 119/52
--- NOTE | 2018-05-17 04:04 | NUR ---
24 HR chart check completed.
[2018-05-17 05:53] LABS: HEMATOCRIT 29.6 % (42.0-52.0); HEMOGLOBIN 9.4 g/dl (14.0-18.0); MEAN CELL VOLUME 99.3 fl (80.0-94.0); MEAN CORPUSCULAR HGB 31.5 pg (27.0-31.0); MEAN CORPUSCULAR HGB CONC 31.8 g/dl (33.0-37.0); MEAN PLATELET VOLUME 10.8 fl (9.6-12.3); PLATELET COUNT AUTOMATED 166 10*3/uL (130-400); RED BLOOD COUNT 2.98 10*6/uL (4.50-5.90); RED CELL DISTRI WIDTH 13.6 % (0-14.5); WHITE BLOOD COUNT 10.9 10*3/uL (4.8-10.8)
[2018-05-17 05:58] LABS: BUN 33 mg/dl (7-24); CHLORIDE 112 mmol/L (98-107); CREATININE 1.22 mg/dL (0.70-1.30); POTASSIUM 4.2 mmol/L (3.5-5.1); SODIUM 141 mmol/L (136-145)
[2018-05-17 06:44] LABS: BURR CELLS FEW; PLATELET SUFFICIENCY NORMAL (NORMAL); POLYCHROMASIA SLIGHT; TOTAL CELLS COUNTED 100 #CELLS
[2018-05-17 08:00] VITALS: BP 156/50
--- NOTE | 2018-05-17 09:00 | NUR ---
case management visits with patient, patient will go back to [facility] when medically stable
--- NOTE | 2018-05-17 09:49 | NUR ---
OT NOTE Pt was seen this A.M. 1:1 for 18 minute OT session. Upon arrival pt was supine in bed, pt identified by name and . Pt had no complaints at this time and presented to therapy with continous 2L-O2 via NC which he remained on throughout entire sesison and IV treatment. Pt transferred supine to sit EOB with Dk for inital processing of task and then pt was able to complete last 75% of task with CGA. While sitting EOB pt donned socks with SBA after set-up and one step commands. Sit to stand transfer completed from bed level with Dk X 2 and use of w/w for UE support. Functional mobility completed around the room with Dk X 2 due to being unsteady and managing IV and O2. Pt required education throughout on walker safety due to having LOB with turns and staying far away from the walker at times. Challenged pt's static standing tolerance needed for increased I in self care tasks and functional transfers and pt was able to tolerate aprox 2 minutes at a time before sitting due to fatigue. Pt was left sitting upright in recliner with call light in hand, trya table in place, and body alarm activated for safety. Continue with POC as able. ELIZABETH Huertas/Erick
[2018-05-17 12:00] VITALS: BP 150/82
[2018-05-17 16:00] VITALS: BP 160/52
--- NOTE | 2018-05-17 16:03 | NUR ---
PHYSICAL THERAPY Patient presented to therapy in supine with head of bed elevated and report of no pain or other complaints. Patient agrees to therapy session. Patient was identified by name and . Patient performed supine to sitting at EOB transfer with MIN A X 2. Patient performed STS transfer with CGA X 2 to MIN A X 2. Patient ambulated with W/W and CGA X 1 with rolling chair follow for 30' x 1 ad IV pole handled by one therapist. Patient was left in sitting position in bedside chair with call light withn reach, chair alarm attached, and LE elevated. patient was 1:1 with this CLIENT SUPPORT MANAGER for 15 minutes total. Patient is recommended to LTC upon discharge. VIOLA CORONEL CLIENT SUPPORT MANAGER
[2018-05-17 20:00] VITALS: BP 167/73
[2018-05-18] VITALS: BP 148/60
[2018-05-18 08:00] VITALS: BP 141/56
--- NOTE | 2018-05-18 11:09 | NUR ---
PHYSICAL THERAPY Patient was on breathing treatment at 11:05 am. Will check back later. VIOLA CORONEL HAND EDGE BANDER
--- NOTE | 2018-05-18 11:45 | NUR ---
OT NOTE Pt was seen this A.M. 1:1 for 17 minute OT session. Upon arrival pt was supine in bed, pt identified by name and . Pt had no complaints at this time and presented with continous 2L-O2 via NC which he remained on throughout entire session and an IV treatment. Pt transferred supine to sit EOB with Dk for assist with UB. Educated pt on use of bed rail for increased I in bed mobility. Whiel sitting EOB pt donned socks with SBA and verbal prompts for inital step. Pt transferred sit to stand with Dk and use of w/w for UE support. Functional mobility completed around the room to the bathroom and back with Dk and use of w/w. Pt required education for pursed lip breathing technique and safety with the walker due to having LOB with turning and being impulsive. Pt was left sitting upright in recliner with call light in hand, tray table in place, and bed alarm activated for safety. Continue with rec D/C plan to return to assisted/SNF. ELIZABETH Huertas/Erick
--- NOTE | 2018-05-18 11:49 | NUR ---
PHYSICAL THERAPY Patient presented to therapy in supine with head of bed elevated with 3 liters of spO2 via nasal canula. Patient had no complaints or concerns. Patient was identified by name and . Patient performed supine to sitting at EOB transfer with MIN A X 1. Patient transferred STS with MIN A X 2 with verbal cues for pushing off armrest of chair with hands. Patient ambulated with W/W with CGA X 1 with other therapist handling the O2 tank and iv pole for 110' x 1. Patient had to sit in waiting room of 4th floor to rest due to SOB. Patient's O2 SAT was taken and recorded at 97%. Patient rested for 8 minutes and then transferred STS from chair to W/W with MOD X 2. Patient ambulated 15' x 1 AND THEN HAD TO SIT AGAIN due ot fatigued so a chair was brought up behind him. Patient's bedside chair was rolled down hallway to patient and patient transferred STS with MOD A X 1 and then SPT to other chair with MIN A X 1. Patient's O2 sats stayed in the mid 90S. Patient was rolled back back down to his room. Patient was left in sitting position in bedside chair with LEs raised, call light within reach, and chair alarm activated and attached to patient. Patient was 1:1 with this SALES ENGINEER for 20 minutes total. VIOLA CORONEL SALES ENGINEER
[2018-05-18 12:00] VITALS: BP 155/77
--- NOTE | 2018-05-18 12:35 | NUR ---
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
--- NOTE | 2018-05-18 15:02 | NUR ---
OCCUPATIONAL THERAPY CO-SIGN I approve of the Occupational Therapy notes written above. ALLIE CHASE OTR/Erick
[2018-05-18 16:00] VITALS: BP 150/60
[2018-05-18 20:00] VITALS: BP 148/69
--- NOTE | 2018-05-18 20:00 | NUR ---
SITTING UP IN MY CHAIR. BODY ALARM INTACT. NO DISTRESS NOTED. CALL LGHT WITHIN REACH.
[2018-05-18 22:00] VITALS: BP 148/69
--- NOTE | 2018-05-18 22:00 | NUR ---
TOOK PO MEDICATIONS WITHOUT DIFFICULTY. IV FLUDS CONTINUE TO INFUSE WITHOUT DIFFICULTY; SITE ASYMPTOMATIC. BLOOD SUGAR 255; COVERAGE GIVEN PER EMAR.
[2018-05-19] VITALS: BP 127/57
--- NOTE | 2018-05-19 02:00 | NUR ---
ASLEEP IN CHAIR IN ROOM. IV FLUIDS CONTINUE TO INFUSE WITHOUT DIFFICULTY; SITE ASYMPTOMATIC. NO DISTRESS NOTED. BODY ALARM INTACT.
--- NOTE | 2018-05-19 06:00 | NUR ---
BLOOD SUGAR 219; COVERAGE GIVEN PER EMAR.
[2018-05-19 07:09] LABS: HEMATOCRIT 34.8 % (42.0-52.0); HEMOGLOBIN 10.9 g/dl (14.0-18.0); MEAN CELL VOLUME 99.1 fl (80.0-94.0); MEAN CORPUSCULAR HGB 31.1 pg (27.0-31.0); MEAN CORPUSCULAR HGB CONC 31.3 g/dl (33.0-37.0); MEAN PLATELET VOLUME 10.3 fl (9.6-12.3); PLATELET COUNT AUTOMATED 187 10*3/uL (130-400); RED BLOOD COUNT 3.51 10*6/uL (4.50-5.90); RED CELL DISTRI WIDTH 13.8 % (0-14.5); WHITE BLOOD COUNT 8.5 10*3/uL (4.8-10.8)
[2018-05-19 07:32] LABS: PLATELET SUFFICIENCY NORMAL (NORMAL); TOTAL CELLS COUNTED 100 #CELLS
[2018-05-19 07:39] LABS: BUN 19 mg/dl (7-24); CHLORIDE 109 mmol/L (98-107); CREATININE 0.98 mg/dL (0.70-1.30); POTASSIUM 3.9 mmol/L (3.5-5.1); SODIUM 141 mmol/L (136-145)
[2018-05-19 08:00] VITALS: BP 179/76
[2018-05-19 12:00] VITALS: BP 160/70
[2018-05-19] MEDS ORDERED: MUCINEX ER600 MG PO (12:23)
[2018-05-19] MEDS ORDERED: PREDNISONE10 MG PO (12:23)
[2018-05-19] MEDS ORDERED: ZITHROMAX250 MG PO (12:23)
--- NOTE | 2018-05-19 12:24 | NUR ---
PHYSICAL THERAPY Patient seen this AM for his therapy session, supine in bed at time of arrival; pt transferred supine->sit with min-modAx1 for B LE advancement and cues for technique. STS transfer from EOB to FWW x 5 reps, each rep requiring CGA-minAx1 (Dk secondary to fatigue); with pt tolerating standing ~30 sec to 1 minute prior to sitting; upon last 3 stands, CIRCUS ARTIST initiated standing balance activites incorporating reaching in all planes and crossing mid-line while tapping therapist hands-- pt then completing standing marches for balance, endurance and strength. Pt transferred sit->supine with modAx1 and completed bridging technique to initiate scooting to [facility], CIRCUS ARTIST also providing Dk for re-postioning. Pt supine at session end with call light and tray table within reach. Lindsay Christianson, CIRCUS ARTIST
--- NOTE | 2018-05-19 17:13 | NUR ---
[facility] Discharge instructions reviewed with patient/family. Patient receptive and verbalizes understanding. Follow-up care arranged. Written instructions given to patient/family. MARIKA LEARY
--- NOTE | 2018-05-21 07:46 | NUR ---
PHYSICAL THERAPY CO-SIGN I approve of the Phyical Therapy notes written above. OSMANY PRASAD PT
--- NOTE | 2018-05-21 09:39 | NUR ---
OCCUPATIONAL THERAPY CO-SIGN I approve of the Occupational Therapy notes written above. ALLIE CHASE OTR/Erick
== END 2018-05-19 17:13 | disposition other institution (70) | DRG 871 ==
PROVIDERS: Emergency Medicine; Internal Medicine; Student in an Organized Health Care Education/Training Program; ADMIT Internal Medicine
DX: A41.9 Sepsis, unspecified organism (principal); G93.41 Metabolic encephalopathy; N17.0 Acute kidney failure with tubular necrosis; J96.01 Acute respiratory failure with hypoxia; E43 Unspecified severe protein-calorie malnutrition; J44.1 Chronic obstructive pulmonary disease with (acute) exacerbation; I50.32 Chronic diastolic (congestive) heart failure; E86.0 Dehydration; I95.89 Other hypotension; E86.1 Hypovolemia; D72.810 Lymphocytopenia; E83.41 Hypermagnesemia; I11.0 Hypertensive heart disease with heart failure; D53.9 Nutritional anemia, unspecified; E11.42 Type 2 diabetes mellitus with diabetic polyneuropathy; E11.65 Type 2 diabetes mellitus with hyperglycemia; K21.9 Gastro-esophageal reflux disease without esophagitis; E78.5 Hyperlipidemia, unspecified; G25.81 Restless legs syndrome; R62.7 Adult failure to thrive; G30.9 Alzheimer's disease, unspecified; F02.80 Dementia in other diseases classified elsewhere, unspecified severity, without behavioral disturbance, psychotic disturbance, mood disturbance, and anxiety; H40.9 Unspecified glaucoma; E61.1 Iron deficiency; R79.82 Elevated C-reactive protein (CRP); Z79.4 Long term (current) use of insulin; Z99.81 Dependence on supplemental oxygen; Z91.14 Patient's other noncompliance with medication regimen; Z91.81 History of falling; Z86.73 Personal history of transient ischemic attack (TIA), and cerebral infarction without residual deficits; Z87.81 Personal history of (healed) traumatic fracture; Z98.41 Cataract extraction status, right eye; Z87.891 Personal history of nicotine dependence; Z82.3 Family history of stroke; Z80.1 Family history of malignant neoplasm of trachea, bronchus and lung; Z79.82 Long term (current) use of aspirin; Z79.899 Other long term (current) drug therapy; Z68.29 Body mass index [BMI] 29.0-29.9, adult

== ENCOUNTER 2018-06-12 05:17 | Emergency (ER) | payer MEDICARE ==
[~2018-06-12] VITALS: Ht 180.3 cm; Wt 99.8 kg
--- NOTE | ~2018-06-12 | EKG ---
[place], [place] ELECTROCARDIOGRAM REPORT NAME: ANGÉLICA SNOW SR UNIT #: [id number] ROOM: DOCTOR: EPIPHANY DRAFT REPORT BIRTHDATE: [birth year] [facility] Test Date: 2018-06-12 Test Time: 05:32:19 Pat Name: ANGÉLICA SNOW Department: Room: Gender: Treating Machine Operator: Hyacinth Mohr : 1930 Requested By: AYAN CORNELL Order Number: [id number] Reading MD: Bird Cantu MD Measurements Intervals [place] Rate: 67 P: 61 WA: 175 QRS: -29 QRSD: 115 T: 71 QT: 423 QTc: 447 Interpretive Statements Sinus rhythm Nonspecific intraventricular conduction delay Borderline ST elevation, anterior leads Baseline wander in lead(s) V1 Compared to ECG 05/15/2018 10:35:20 Intraventricular conduction delay now present Electronically Signed On 06-12-2018 9:20:43 PST by Bird Cantu MD CM:EKGRPT:ELECTROCARDIOGRAM REPORT [id number] AYAN HUERTA DRAFT REPORT AYAN CORNELL DO
[~2018-06-12 05:17] MED LIST changes: +MUCINEX ER600 MG PO; +TESSALON PERLE100 MG PO; +ZITHROMAX250 MG PO
[2018-06-12 05:30] LABS: BASO % 0.2 % (0.0-1.0); HEMATOCRIT 35.4 % (42.0-52.0); HEMOGLOBIN 11.2 g/dl (14.0-18.0); LYMPH # 0.5 10*3/uL (1.3-4.4); LYMPH % 9.6 % (27.0-41.0); MEAN CELL VOLUME 99.4 fl (80.0-94.0); MEAN CORPUSCULAR HGB 31.5 pg (27.0-31.0); MEAN CORPUSCULAR HGB CONC 31.6 g/dl (33.0-37.0); MEAN PLATELET VOLUME 10.4 fl (9.6-12.3); MONO # 0.5 10*3/uL (0.1-1.0); MONO % 9.6 % (3.0-9.0); NEUT # 4.5 10*3/uL (2.3-7.9); NEUT % 79.9 % (47.0-73.0); PLATELET COUNT AUTOMATED 116 10*3/uL (130-400); RED BLOOD COUNT 3.56 10*6/uL (4.50-5.90); RED CELL DISTRI WIDTH 14.1 % (0-14.5); WHITE BLOOD COUNT 5.6 10*3/uL (4.8-10.8)
[2018-06-12 05:50] LABS: ALBUMIN 3.1 gm/dl (3.1-4.5); ALKALINE PHOSPHATASE 89 U/L (45-117); BUN 35 mg/dl (7-24); CHLORIDE 111 mmol/L (98-107); CREATININE 1.24 mg/dL (0.70-1.30); POTASSIUM 5.2 mmol/L (3.5-5.1); SGOT/AST 18 IU/L (3-35); SGPT/ALT 30 U/L (12-78); SODIUM 144 mmol/L (136-145); TOTAL PROTEIN 7.1 gm/dL (6.4-8.2)
[2018-06-12 05:53] LABS: TROPONIN I < 0.015 ng/ml (<0.045)
[2018-06-12 06:22] VITALS: BP 94/37
== END 2018-06-12 07:00 | disposition home or self-care (01) ==
LOC: ED 05:17
PROVIDERS: Student in an Organized Health Care Education/Training Program
DX: E11.649 Type 2 diabetes mellitus with hypoglycemia without coma (principal); R05 Cough; R09.81 Nasal congestion; J44.9 Chronic obstructive pulmonary disease, unspecified; K21.9 Gastro-esophageal reflux disease without esophagitis; E78.5 Hyperlipidemia, unspecified; I11.0 Hypertensive heart disease with heart failure; I50.30 Unspecified diastolic (congestive) heart failure; Z86.73 Personal history of transient ischemic attack (TIA), and cerebral infarction without residual deficits; Z79.899 Other long term (current) drug therapy; Z79.82 Long term (current) use of aspirin; Z79.4 Long term (current) use of insulin